=== PATIENT | female | born 1995 | race Caucasian/White ===

== ENCOUNTER → 2017-01-01 | Outpatient (CLI) | payer MEDICAID ==
[~2017-01-01] MED LIST: CITA10TA12 PO; CITA20TA12 PO; CITA20TA7 PO; DOXY1TAB3 PO; FERR-74 PO; HYDR-3062 PO; HYDR-3729 PO; HYDR-3812 PO; HYDR-757 PO; HYOS0.1217 PO; HYOS0.1283 SL; IBP600T1 PO; IBUP-1773 PO; LACT-34 PO; NITR-65 PO; ONDA4TAB8 PO; ONDN4T PO; OXYC-197 PO; PANT40TA2 PO; PANT40TA3 PO; PNV91TAB3 PO; PREN-37 PO; PREN1TAB71 PO; SULF-222 PO
--- NOTE | 2017-01-01 14:00 | Diagnostic Imaging Report ---
EXAMINATION: Two views of the right shoulder. INDICATION: Right shoulder pain. FINDINGS: No fracture or radiopaque foreign body. The acromioclavicular joint appears normal. Full alignment assessment of the glenohumeral joint would need an axillary or a transscapular view. IMPRESSION: Unremarkable exam. Dictated by: Dictated on workstation # [id number]
--- NOTE | 2017-01-01 14:11 | Diagnostic Imaging Report ---
INDICATION: Scoliosis. FINDINGS: There is thoracolumbar scoliosis S-shaped convex to the right in the thoracic mid level and convex to the left in the upper lumbar spine level. The slightly more prominent upper curvature has an associated Villalta angle of angle of 34 degrees. The vertebral body heights and configuration appear within normal limits with no vertebral anomaly demonstrated. No paravertebral soft tissue mass is evident. IMPRESSION: S-shaped thoracolumbar scoliosis with Villalta angle up to 34 degrees. Dictated by: Dictated on workstation # [id number]
== END ==
LOC: RAD 10:52
PROVIDERS: ATTEND Nurse Practitioner Family
DX: M41.115 Juvenile idiopathic scoliosis, thoracolumbar region (principal); M25.511 Pain in right shoulder
CPT/HCPCS: 72081; 73030

== ENCOUNTER 2017-06-21 16:19 | Emergency (ER) | payer MEDICAID ==
[~2017-06-21] VITALS: Ht 167.6 cm; Wt 90.7 kg
[~2017-06-21 16:19] MED LIST changes: +HYOS-6 PO; -HYOS0.1217 PO
[2017-06-21] MEDS ORDERED: HYDR-700 (16:48)
[2017-06-21] MEDS ORDERED: BACL10TA (16:48)
[2017-06-21 17:10] LABS: BILIRUBIN,URINE NEGATIVE (NEGATIVE); KETONES,URINE NEGATIVE (NEGATIVE); LEUKOCYTE ESTERASE ,URINE 1+ (NEGATIVE); NITRITE,URINE NEGATIVE (NEGATIVE); PH,URINE 6 (5-9); PROTEIN,URINE NEGATIVE (NEGATIVE); UROBILINOGEN,URINE NORMAL (NORMAL)
--- NOTE | 2017-06-21 18:17 | ED GU-Female ---
General Chief Complaint: -Female Stated Complaint: L HIP PAIN Nursing Triage Note: ARRIVED VIA AMB TO ROOM 09 WITH COMPLAINTS OF PASSING BLOCK CLUMPS OF TISSUE 4 DAYS AGO AND LEFT LOWER QUAD PAIN SINCE. Nursing Sepsis Screen: No Definite Risk Source: patient Exam Limitations: no limitations (ANAT ROBIN MD) History of Present Illness Time seen by provider: 16:30 Initial Comments This 21-year-old young lady presents to the emergency room with complaints of left lower quadrant pain that started about 3 days ago. 4 days ago she had an episode of vaginal discharge consisting of black appearing clumps. She is on the Depo-Provera injection and is up to date. Her next shot is due June 26. Her last menstrual period was in August 2016. She is sexually active. She has had some mild whitish discharge for the past few days. She denies any pain with intercourse. She does have some chronic issues with diarrhea, bloating, and upper abdominal discomfort. She sees Dr. Olivares for this and is improving. She has been taking "a purple pill" for her upper abdominal pain. She does not know what this medication is but it is presumed this is an antacid medication. She reports it is helping with the upper abdominal symptoms. Patient has not been taking any pain medications. (ANAT ROBIN MD) Allergies and Home Medications Allergies Coded Allergies: Penicillins (Verified Allergy, Intermediate, HIVES, 04/25/14) meropenem (Verified Allergy, Intermediate, HIVES, 08/04/16) FLUSHING Home Medications Baclofen 10 Mg Tablet, (Reported) Citalopram Hydrobromide 20 Mg Tablet, 20 MG PO DAILY, (Reported) Hydrocodone/Acetaminophen 1 Each Tablet, 1-2 TAB PO Q4H PRN for PAIN, #60 Ref 0 Prescribed by: JARETH CASAS on 09/05/16 0949 Hydroxyzine HCl 25 Mg Tablet, (Reported) Lactose-Reduced Food 237 Ml Liquid, 237 ML PO TID, (Reported) Constitutional: no symptoms reported EENTM: no symptoms reported Respiratory: no symptoms reported Cardiovascular: no symptoms reported Gastrointestinal: see HPI Genitourinary: see HPI : No LMP: Aug 16, 2016 Musculoskeletal: no symptoms reported Skin: no symptoms reported Psychiatric/Neurological: No Symptoms Reported Endocrine: No Symptoms Reported Hematologic/Lymphatic: No Symptoms Reported (ANAT ROBIN MD) Past Hdblkbs-Dunlrz-Dcpwhm Hx Patient Social History Alcohol Use: Rarely Uses Recreational Drug Use: No Smoking Status: Current Everyday Smoker Type Used: Cigarettes Recent Foreign Travel: No Contact w/Someone Who Travel: No Recent Infectious Disease Expo: No Recent Hopitalizations: Yes (CHILDBIRTH ON JUN 26, 2017, PANCREATITIS 08/01/16) (ANAT ROBIN MD) Immunizations Up To Date Tetanus Booster (TDap): Less than 5yrs PED Vaccines UTD: Yes Date of Influenza Vaccine: Jun 04, 2016 (ANAT ROBIN MD) Seasonal Allergies Seasonal Allergies: No (ANAT ROBIN MD) Surgeries History of Surgeries: Yes (BMT's, ERCP) Surgeries: Adenoidectomy, Ear Surgery, Gallbladder, Tonsillectomy (ANAT ROBIN MD) Respiratory History of Respiratory Disorde: No Currently Using CPAP: No Currently Using BIPAP: No (ANAT ROBIN MD) Cardiovascular History of Cardiac Disorders: No (ANAT ROBIN MD) Neurological History of Neurological Disord: No (ANAT ROBIN MD) 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 System : No Hx 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 Disorders: No Sexually Transmitted Disease: No 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 (ANAT ROBIN MD) Gastrointestinal History of Gastrointestinal Di: Yes Gastrointestinal Disorders: Pancreatitis, Gall Bladder Disease (ANAT ROBIN MD) Musculoskeletal History of Musculoskeletal Dis: Yes Musculoskeletal Disorders: Scoliosis (ANAT ROBIN MD) Endocrine History of Endocrine Disorders: No (ANAT ROBIN MD) HEENT Loss of Vision: Bilateral Hearing Impairment: Denies (ANAT ROBIN MD) Cancer History of Cancer: No (ANAT ROBIN MD) Psychosocial History of Psychiatric Problem: Yes Behavioral Health Disorders: Anxiety, Depression (ANAT ROBIN MD) Integumentary History of Skin or Integumenta: No (ANAT ROBIN MD) Blood Transfusions History of Blood Disorders: Yes (ANEMIA) Adverse Reaction to a Blood Tr: No (ANAT ROBIN MD) Family Medical History Significant Family History: Diabetes, Hypertension Family Medial History: FH: gallbladder disease 19 MOTHER High cholesterol 19 FATHER Hypertension 19 FATHER Hypoglycemia 19 FATHER G8 BROTHER (ANAT ROBIN MD) Family Medial History: FH: gallbladder disease 19 MOTHER High cholesterol 19 FATHER Hypertension 19 FATHER Hypoglycemia 19 FATHER G8 BROTHER (SHANICE MCCARTHY MD) Physical Exam Vital Signs Vital Sign - Last 12Hours 06/21/17 16:30 Temp 98.0 Pulse 94 Resp 18 B/P (MAP) 130/86 Pulse Ox 99 (SHANICE MCCARTHY MD) Vital Signs Capillary Refill : Less Than 3 Seconds (ANAT ROBIN MD) General Appearance: WD/WN, no apparent distress HEENT: PERRL/EOMI, normal ENT inspection Neck: normal inspection Cardiovascular: regular rate, rhythm, no edema, no murmur Respiratory: lungs clear, normal breath sounds, no respiratory distress, no accessory muscle use Gastrointestinal: normal bowel sounds, soft, tenderness (left lower quadrant) Pelvic: normal external exam, normal adnexa, no cerv. 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, no motor/sensory deficits, alert, normal mood/affect, oriented x 3 Skin: normal color, warm/dry (ANAT ROBIN MD) Progress/Results/Core Measures Results/Orders Lab Results Laboratory Tests Test 06/21/17 16:51 06/21/17 17:53 Range/Units Urine Color YELLOW Urine Clarity CLEAR Urine pH 6 5-9 Urine Specific [place] 1.010 L 1.016-1.022 Urine Protein NEGATIVE NEGATIVE Urine Glucose (UA) NEGATIVE NEGATIVE Urine Ketones NEGATIVE NEGATIVE Urine Nitrite NEGATIVE NEGATIVE Urine Bilirubin NEGATIVE NEGATIVE Urine Urobilinogen NORMAL NORMAL MG/DL Urine Leukocyte Esterase 1+ H NEGATIVE Urine RBC (Auto) NEGATIVE NEGATIVE Urine RBC NONE /HPF Urine WBC NONE /HPF Urine Crystals NONE /LPF Urine Bacteria TRACE /HPF Urine Casts NONE /LPF Urine Mucus NEGATIVE /LPF Urine Culture Indicated NO Urine Test NEGATIVE NEGATIVE (SHANICE MCCARTHY MD) Medications Given in ED Current Medications Medications Dose Ordered Sig/Corey Route Start Time Stop Time Status Last Admin Dose Admin Ketorolac Tromethamine 60 mg ONCE ONCE IM 06/21/17 18:30 06/21/17 18:31 DC 06/21/17 18:28 60 MG (SHANICE MCCARTHY MD) Vital Signs/I&O Vital Sign - Last 12Hours 06/21/17 16:30 Temp 98.0 Pulse 94 Resp 18 B/P (MAP) 130/86 Pulse Ox 99 (SHANICE MCCARTHY MD) Blood Pressure Mean: 101 Point of Care Testing Urine -Bedside: Negative (ANAT ROBIN MD) Progress Note : Progress Note UA and pelvic exam were relatively unremarkable with the exception of left lower quadrant tenderness on the bimanual exam. Patient is receiving Toradol for treatment of pain. Pelvic ultrasound is pending to evaluate the left adnexa. Care of this patient was transferred to Dr. Mccarthy at this time. Verbal report was given. Dr. Miranda's progress note was intended to read "...for her depo-provera injection," not "depression". (ANAT ROBIN MD) Progress Note : Progress Note 1904: Ultrasound complete. No significant findings on ultrasound. Reexamination shows the patient to have mild left lower quadrant tenderness. States that the Toradol didn't do a lot for her pain. She does relay that she is due for her depression on the . This may be breakthrough. Pain. We did discuss multiple options including further evaluation but we both agree that we will hold off at this point and see if she gets better over the next day or 2 with instructions to return if she worsens at all and then we would do further evaluation including labs and imaging is needed. Discharged home with return precautions. Patient verbalize understanding instructions and agreement with plan. (SHANICE MCCARTHY MD) Diagnostic Imaging Diagonstic Imaging: Ultrasound Plain Films/CT/US/NM/MRI: pelvis Comments Left ovary shows no significant findings. Otherwise unremarkable. Right ovary not visualized. Preliminary report (SHANICE MCCARTHY MD) Departure Impression Impression: Primary Impression: Left lower quadrant pain Additional Impression: Vaginal discharge Disposition: 01 HOME, SELF-CARE Condition: Stable Departure-Patient Inst. Decision time for Depature: 19:15 (SHANICE MCCARTHY MD) Referrals: FLORA WEATHERS DO (PCP) Primary Care Physician MILDRED COWAN (Family) Primary Care Physician Patient Instructions: Acute Pelvic Pain (DC), IRREGULAR VAGINAL BLEEDING Add. Discharge Instructions: All discharge instructions reviewed with patient and/or family. Voiced understanding. Drink plenty of fluids. Eat a light diet over the next few days. You may take ibuprofen 800 mg every 8 hours as needed for pain. You may take Tylenol 1000 mg every 8 hours as needed for pain. You may use warm packs over the area of concern as needed to help with pain. Return for worse pain, fever, vomiting, weakness, breathing problems or other concerns as needed. ANAT ROBIN MD Jun 21, 2017 18:17 SHANICE MCCARTHY MD Jun 21, 2017 19:15
[2017-06-21] MEDS ORDERED: KETOROLAC 60 MG/2 ML VIAL IM ONE (18:30)
[2017-06-21 19:20] VITALS: BP 122/74
--- NOTE | 2017-06-21 19:36 | Diagnostic Imaging Report ---
INDICATION: Left lower quadrant pain for four days, patient on Depo shots with no cycles. FINDINGS: Transvaginal imaging of the pelvis demonstrates normal appearance of the uterus measuring 6.1 x 5.3 x 3.2 cm. The endometrium is normal in thickness measuring 3 mm. There is no free fluid. The right ovary is obscured by bowel gas. The left ovary has several small follicles and measures 2.5 x 2.0 x 2.7 cm. IMPRESSION: The right ovary is obscured by bowel gas. The left ovary and uterus appear normal. Dictated by: Dictated on workstation # [id number]
== END 2017-06-21 19:19 | disposition home or self-care (01) ==
LOC: EDUNIT# 16:19 → ER 16:20
DX: N89.8 Other specified noninflammatory disorders of vagina (principal); R10.32 Left lower quadrant pain; D64.9 Anemia, unspecified; F41.9 Anxiety disorder, unspecified; F32.9 Major depressive disorder, single episode, unspecified; H54.3 Unqualified visual loss, both eyes; F17.210 Nicotine dependence, cigarettes, uncomplicated; Z97.5 Presence of (intrauterine) contraceptive device; Z90.89 Acquired absence of other organs; Z87.19 Personal history of other diseases of the digestive system
CPT/HCPCS: 36415; 76830; 76856; 81000; 84703; 87070; 87077; 87210; 87220; 87491; 87591; 96372; 99284

== ENCOUNTER 2017-08-14 15:17 | Emergency (ER) | payer OTHER, MEDICAID ==
[~2017-08-14] VITALS: Ht 170.2 cm; Wt 95.3 kg
[~2017-08-14 15:17] MED LIST changes: +BACL10TA; +HYDR-700
--- NOTE | 2017-08-14 16:21 | ED Syncope ---
General Chief Complaint: Dizziness/Syncope Stated Complaint: CHILLS;PASSING OUT Nursing Triage Note: AMBULATED TO ROOM 03 WITH COMPLAINTS OF PASSING OUT WHILE AT WORK. UNKNOWN IF SHE HIT HER HEAD. STATES SHE PASSED OUT ABOUT A YEAR AGO. Source of Information: Patient, Other (sister) Exam Limitations: No Limitations History of Present Illness Time Seen by Provider: 16:06 Initial Comments Patient has ER by private conveyance with a chief complaint that she was at work today and passed out just prior to arrival. She says she woke up laying on the desk with her head on a pillow. She does not think she struck her head does have a headache however. She was unwitnessed fall. She says she was sitting at her day's doing paperwork last she knew. Her work is rather physical typically. She had one syncopal episode earlier in the year when she was standing at her job at [employer]. She is not on any cough, shortness of breath, nausea, vomiting, diarrhea, however she feels some abdominal discomfort. She says this discomfort been going on for a while and she has a planned CT scan of her abdomen pelvis looking for a possible ovarian cyst set up by her primary care physician in [place], [place]. She has had her gallbladder out in the past. She also had pancreatitis after that, Stone lodged in her pancreatic duct that had to be retrieved surgically. She says she has been expressing fevers off and on for the past month with a MAXIMUM TEMPERATURE of 101. The last one was about a week ago. She has not had that worked up and does not been on antibiotics last 4 weeks. She has no sore throat, runny nose, ear pain, nasal congestion, rash. Last menstrual period was one year ago. She is on Depo-Provera for approximately one year. She also has a history of anxiety and she felt a little shaky after waking up so she took a tablet of hydroxyzine which helped. Allergies and Home Medications Allergies Coded Allergies: Penicillins (Verified Allergy, Intermediate, HIVES, 04/25/14) meropenem (Verified Allergy, Intermediate, HIVES, 08/04/16) FLUSHING Home Medications Baclofen 10 Mg Tablet, (Reported) Citalopram Hydrobromide 20 Mg Tablet, 20 MG PO DAILY, (Reported) Hydrocodone/Acetaminophen 1 Each Tablet, 1-2 TAB PO Q4H PRN for PAIN, #60 Ref 0 Prescribed by: JARETH CASAS on 09/05/16 0949 Hydroxyzine HCl 25 Mg Tablet, (Reported) Lactose-Reduced Food 237 Ml Liquid, 237 ML PO TID, (Reported) Constitutional: see HPI, No chills, No diaphoresis, fever EENTM: No ear discharge, No ear pain, No eye pain, No vision loss Respiratory: No cough, No short of breath Cardiovascular: No chest pain, No Hx of Intervention, No palpitations, syncope , No vascular heart diseas Gastrointestinal: No abdominal pain, No constipation, No diarrhea, No nausea, No vomiting Genitourinary: No discharge, No dysuria : No Skin: No pruritus, No rash Past Qhdjagv-Awomrc-Duraqx Hx Patient Social History Alcohol Use: Rarely Uses Recreational Drug Use: No Smoking Status: Never a Smoker Type Used: Cigarettes Recent Foreign Travel: No Contact w/Someone Who Travel: No Recent Infectious Disease Expo: No Recent Hopitalizations: No Immunizations Up To Date Tetanus Booster (TDap): Less than 5yrs PED Vaccines UTD: Yes Date of Influenza Vaccine: Jun 04, 2016 Seasonal Allergies Seasonal Allergies: No Surgeries History of Surgeries: Yes (BMT's, ERCP) Surgeries: Adenoidectomy, Ear Surgery, Gallbladder, Tonsillectomy Respiratory History of Respiratory Disorde: No Currently Using CPAP: No Currently Using BIPAP: No Cardiovascular History of Cardiac Disorders: No Neurological History of Neurological Disord: No 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 System : No (ON DEPO) Hx 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 Disorders: No Sexually Transmitted Disease: No 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 Genitourinary History of Genitourinary Disor: No Gastrointestinal History of Gastrointestinal Di: Yes Gastrointestinal Disorders: Pancreatitis, Gall Bladder Disease Musculoskeletal History of Musculoskeletal Dis: Yes Musculoskeletal Disorders: Scoliosis Endocrine History of Endocrine Disorders: No HEENT History of HEENT Disorders: No Loss of Vision: Bilateral Hearing Impairment: Denies Cancer History of Cancer: No Psychosocial History of Psychiatric Problem: Yes Behavioral Health Disorders: Anxiety, Depression Integumentary History of Skin or Integumenta: No Blood Transfusions History of Blood Disorders: Yes (ANEMIA) Adverse Reaction to a Blood Tr: No Family Medical History Significant Family History: Diabetes, Hypertension Family Medial History: FH: gallbladder disease 19 MOTHER High cholesterol 19 FATHER Hypertension 19 FATHER Hypoglycemia 19 FATHER G8 BROTHER Physical Exam Vital Signs Vital Sign - Last 12Hours 08/14/17 15:56 Temp 98.0 Pulse 104 Resp 18 B/P (MAP) 123/82 Pulse Ox 99 Capillary Refill : Less Than 3 Seconds General Appearance: No Apparent Distress, Obese HEENT: PERRL/EOMI, TMs Normal, Normal ENT Inspection, Pharynx Normal Neck: Full Range of Motion, Normal Inspection, Non Tender, Supple Cardiovascular: Regular Rate, Rhythm, No Edema, No Murmur, Normal Peripheral Pulses Respiratory: Chest Non Tender, Lungs Clear, Normal Breath Sounds, No Accessory Muscle Use, No Respiratory Distress Gastrointestinal: Normal Bowel Sounds, No Organomegaly, No Pulsatile Mass, Non Tender, Soft Extremities: Normal Capillary Refill, Normal Inspection, No Pedal Edema Neurologic/Psychiatric: Alert, Oriented x3, Normal 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, 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 Cranial Nerves: Normal Hearing, Normal Speech, PERRL Coordination/Gait: Normal Finger to Nose, Normal Gait Motor/Sensory: No Motor Deficit, No Sensory Deficit, No Pronator Drift Skin: Normal Color, Warm/Dry Progress/Results/Core Measures Results/Orders Lab Results Laboratory Tests Test 08/14/17 16:11 08/14/17 16:26 Range/Units Urine Color YELLOW Urine Clarity CLEAR Urine pH 6 5-9 Urine Specific [place] 1.020 1.016-1.022 Urine Protein 1+ H NEGATIVE Urine Glucose (UA) NEGATIVE NEGATIVE Urine Ketones NEGATIVE NEGATIVE Urine Nitrite NEGATIVE NEGATIVE Urine Bilirubin NEGATIVE NEGATIVE Urine Urobilinogen NORMAL NORMAL MG/DL Urine Leukocyte Esterase 1+ H NEGATIVE Urine RBC (Auto) NEGATIVE NEGATIVE Urine RBC NONE /HPF Urine WBC 2-5 /HPF Urine Squamous Epithelial Cells 10-25 H /HPF Urine Crystals NONE /LPF Urine Bacteria FEW H /HPF Urine Casts NONE /LPF Urine Mucus LARGE H /LPF Urine Culture Indicated NO Urine Opiates Screen NEGATIVE NEGATIVE Urine Oxycodone Screen NEGATIVE NEGATIVE Urine Methadone Screen NEGATIVE NEGATIVE Urine Propoxyphene Screen NEGATIVE NEGATIVE Urine Barbiturates Screen NEGATIVE NEGATIVE Ur Tricyclic Antidepressants Screen NEGATIVE NEGATIVE Urine Phencyclidine Screen NEGATIVE NEGATIVE Urine Amphetamines Screen NEGATIVE NEGATIVE Urine Methamphetamines Screen NEGATIVE NEGATIVE Urine Benzodiazepines Screen NEGATIVE NEGATIVE Urine Cocaine Screen NEGATIVE NEGATIVE Urine Cannabinoids Screen NEGATIVE NEGATIVE White Blood Count 9.7 4.3-11.0 10^3/uL Red Blood Count 5.20 4.35-5.85 10^6/uL Hemoglobin 14.2 11.5-16.0 G/DL Hematocrit 42 35-52 % Mean Corpuscular Volume 81 80-99 FL Mean Corpuscular Hemoglobin 27 25-34 PG Mean Corpuscular Hemoglobin Concent 34 32-36 G/DL Red Cell Distribution Width 13.6 10.0-14.5 % Platelet Count 345 130-400 10^3/uL Mean Platelet Volume 9.9 7.4-10.4 FL Neutrophils (%) (Auto) 88 H 42-75 % Lymphocytes (%) (Auto) 9 L 12-44 % Monocytes (%) (Auto) 3 0-12 % Eosinophils (%) (Auto) 0 0-10 % Basophils (%) (Auto) 0 0-10 % Neutrophils # (Auto) 8.6 H 1.8-7.8 X 10^3 Lymphocytes # (Auto) 0.9 L 1.0-4.0 X 10^3 Monocytes # (Auto) 0.2 0.0-1.0 X 10^3 Eosinophils # (Auto) 0.0 0.0-0.3 10^3/uL Basophils # (Auto) 0.0 0.0-0.1 10^3/uL Neutrophils % (Manual) 89 % Lymphocytes % (Manual) 10 % Monocytes % (Manual) 1 % Eosinophils % (Manual) 0 % Basophils % (Manual) 0 % Band Neutrophils 0 % Blood Morphology Comment NORMAL Sodium Level 138 135-145 MMOL/L Potassium Level 3.9 3.6-5.0 MMOL/L Chloride Level 107 98-107 MMOL/L Carbon Dioxide Level 23 21-32 MMOL/L Anion Gap 8 5-14 MMOL/L Blood Urea Nitrogen 10 7-18 MG/DL Creatinine 0.73 0.60-1.30 MG/DL Estimat Glomerular Filtration Rate > 60 BUN/Creatinine Ratio 14 Glucose Level 92 70-105 MG/DL Calcium Level 9.3 8.5-10.1 MG/DL Total Bilirubin 0.7 0.1-1.0 MG/DL Aspartate Amino Transf (AST/SGOT) 22 5-34 U/L Alanine Aminotransferase (ALT/SGPT) 27 0-55 U/L Alkaline Phosphatase 76 40-136 U/L Total Protein 8.4 H 6.4-8.2 GM/DL Albumin 4.4 3.2-4.5 GM/DL Lipase 22 8-78 U/L Thyroid Stimulating Hormone (TSH) 0.84 0.35-4.94 UIU/ML My Orders Orders - LYNN DALEY Cbc With Automated Diff (08/14/17 16:10) Comprehensive Metabolic Panel (08/14/17 16:10) Drug Screen Stat (Urine) (08/14/17 16:10) Lipase (08/14/17 16:10) Ua Culture If Indicated (08/14/17 16:10) Chest Pa/Lat (2 View) (08/14/17 16:10) Ekg Tracing (08/14/17 16:10) Urine Bedside (08/14/17 16:10) Thyroid Stimulating Hormone (08/14/17 16:22) Ondansetron Injection (Zofran Injectio (08/14/17 17:00) Manual Differential (08/14/17 16:26) Medications Given in ED Current Medications Medications Dose Ordered Sig/Corey Route Start Time Stop Time Status Last Admin Dose Admin Ondansetron HCl 4 mg ONCE ONCE IVP 08/14/17 17:00 08/14/17 17:01 DC 08/14/17 17:09 4 MG Vital Signs/I&O Vital Sign - Last 12Hours 08/14/17 15:56 Temp 98.0 Pulse 104 Resp 18 B/P (MAP) 123/82 Pulse Ox 99 Blood Pressure Mean: 96 Progress Note : Time: 16:17 Progress Note We'll do a syncopal workup in EKG, chest x-ray, labs, urine, urine test , TSH, set of orthostatic vitals. Orthostatic vitals are normal 139/66 lying, 118/77 sitting, on 110/63 standing. Heart rate 74, 82, 81. ECG Initial ECG Impression Date: Aug 14, 2017 Initial ECG Impression Time: 16:26 Initial ECG Rate: 100 Initial ECG Rhythm: S.Tach Initial ECG Intervals: Normal Initial ECG Impression: Normal Initial ECG Comparisson: No Previous ECG Available Comment No T-wave abnormalities. Diagnostic Imaging Diagonstic Imaging: Xray Plain Films/CT/US/NM/MRI: chest Comments NAME: PEGGY RAMSAY [facility] REC#: [id number] PHYSICIAN: LYNN DALEY MD CC: RUBENS HOROWITZ; LYNN DALEY Page 1 of 1 RADIOLOGY REPORT VIA [facility], [facility]. [place], [place] CC: RUBENS HOROWITZ; LYNN DALEY Page 1 of 1 RADIOLOGY REPORT NAME: PEGGY RAMSAY [facility] REC#: [id number] PT STATUS: REG ER : 1995 PHYSICIAN: LYNN DALEY MD ADMIT DATE: 08/14/17/ER Signed Date of Exam: 08/14/17 CHEST PA/LAT (2 VIEW) INDICATION: Passed out. COMPARISON: 08/05/2016. FINDINGS: Frontal and lateral views of the chest were performed. FINDINGS: There is scoliosis present. The lungs are clear. The heart is normal. There is no pneumothorax or effusion. IMPRESSION: Negative chest. Dictated by: Dictated on workstation # [id number] Dict: 08/14/17 1658 Trans: 08/14/174 Interpreted by: RUBENS HOROWITZ Electronically signed by: RUBENS HOROWITZ 08/14/174 Reviewed: Reviewed by Me Departure Impression Impression: Primary Impression: Syncope and collapse Disposition: 01 HOME, SELF-CARE Condition: Stable Departure-Patient Inst. Decision time for Depature: 18:04 Referrals: FLORA WEATHERS DO (PCP) Primary Care Physician MILDRED COWAN (Family) Primary Care Physician Patient Instructions: Syncope (Fainting) (DC) Add. Discharge Instructions: Make sure drinking plenty of fluids. Follow-up in the next 2-4 weeks with your primary care physician for further evaluation and management. If you begin to have more frequent syncope then you should follow-up sooner. All discharge instructions reviewed with patient and/or family. Voiced understanding. Work/School Note: Work Release Form Date Seen in the Emergency Department: Aug 14, 2017 Return to Work: Aug 15, 2017 Restrictions: No Restrictions Copy Copies To 1: FLORA WEATHERS TITUS J Aug 14, 2017 16:21
[2017-08-14 16:27] LABS: BILIRUBIN,URINE NEGATIVE (NEGATIVE); KETONES,URINE NEGATIVE (NEGATIVE); LEUKOCYTE ESTERASE ,URINE 1+ (NEGATIVE); NITRITE,URINE NEGATIVE (NEGATIVE); PH,URINE 6 (5-9); PROTEIN,URINE 1+ (NEGATIVE); UROBILINOGEN,URINE NORMAL (NORMAL)
[2017-08-14 16:44] LABS: BASOPHILS % (AUTO) 0 % (0-10); EOSINOPHILS % (AUTO) 0 % (0-10); LYMPHOCYTES # (AUTO) 0.9 X 10^3 (1.0-4.0); LYMPHOCYTES % (AUTO) 9 % (12-44); MEAN CORPUSCULAR HEMOGLOBIN 27 PG (25-34); MEAN CORPUSCULAR HGB CONC 34 G/DL (32-36); MEAN CORPUSCULAR VOLUME 81 FL (80-99); MEAN PLATELET VOLUME 9.9 FL (7.4-10.4); MONOCYTES # (AUTO) 0.2 X 10^3 (0.0-1.0); MONOCYTES % (AUTO) 3 % (0-12); NEUTROPHILS # (AUTO) 8.6 X 10^3 (1.8-7.8); NEUTROPHILS % (AUTO) 88 % (42-75); PLATELET COUNT 345 10^3/uL (130-400); RED CELL DISTRIBUTION WIDTH 13.6 % (10.0-14.5); WHITE BLOOD COUNT 9.7 10^3/uL (4.3-11.0)
[2017-08-14] MEDS ORDERED: ONDANSETRON 4 MG/2 ML (SDV) Z0FRAN IVP ONE (17:00)
[2017-08-14 17:03] LABS: ALANINE AMINOTRANSFERASE 27 U/L (0-55); ALBUMIN 4.4 GM/DL (3.2-4.5); ANION GAP 8 MMOL/L (5-14); ASPARTATE AMINO TRANSFERASE 22 U/L (5-34); BAND NEUTROPHILS 0 %; BASOPHILS % (MANUAL) 0 %; BILIRUBIN,TOTAL 0.7 MG/DL (0.1-1.0); BLOOD UREA NITROGEN 10 MG/DL (7-18); BUN/CREATININE RATIO 14; CALCIUM 9.3 MG/DL (8.5-10.1); CARBON DIOXIDE 23 MMOL/L (21-32); CHLORIDE 107 MMOL/L (98-107); CREATININE SERUM 0.73 MG/DL (0.60-1.30); EOSINOPHILS % (MANUAL) 0 %; GFR ESTIMATED > 60; GLUCOSE 92 MG/DL (70-105); LIPASE 22 U/L (8-78); LYMPHOCYTES % (MANUAL) 10 %; NEUTROPHILS % (MANUAL) 89 %; POTASSIUM 3.9 MMOL/L (3.6-5.0); SODIUM 138 MMOL/L (135-145); TOTAL PROTEIN 8.4 GM/DL (6.4-8.2)
--- NOTE | 2017-08-14 17:04 | Diagnostic Imaging Report ---
INDICATION: Passed out. COMPARISON: 08/05/2016. FINDINGS: Frontal and lateral views of the chest were performed. FINDINGS: There is scoliosis present. The lungs are clear. The heart is normal. There is no pneumothorax or effusion. IMPRESSION: Negative chest. Dictated by: Dictated on workstation # [id number]
[2017-08-14 17:23] LABS: THYROID STIMULATING HORMONE 0.84 UIU/ML (0.35-4.94)
[2017-08-14 18:10] VITALS: BP 113/77
== END 2017-08-14 18:10 | disposition home or self-care (01) ==
LOC: EDUNIT# 15:17 → ER 15:19
DX: R55 Syncope and collapse (principal); F41.9 Anxiety disorder, unspecified; F32.9 Major depressive disorder, single episode, unspecified; Z97.5 Presence of (intrauterine) contraceptive device; Z86.2 Personal history of diseases of the blood and blood-forming organs and certain disorders involving the immune mechanism
CPT/HCPCS: 36415; 71020; 80053; 80306; 81000; 83690; 84443; 84703; 85007; 85025; 85027; 93005

== ENCOUNTER 2017-08-28 16:41 | Emergency (ER) | payer MEDICAID, OTHER ==
[~2017-08-28] VITALS: Ht 170.2 cm; Wt 95.3 kg
[2017-08-28] MEDS ORDERED: KETOROLAC 30 MG/ML VIAL IVP STA (19:31)
[2017-08-28] MEDS ORDERED: LACTATED RINGERS 1,000 ML IV ONE (19:31)
[2017-08-28] MEDS ORDERED: NS 100 ML (IVPB) BAG IV ONE (19:45)
[2017-08-28] MEDS ORDERED: IOHEXOL 350 MG/ML 100 ML (OMNIPAQUE 350) VIAL IV ONE (19:45)
[2017-08-28] MEDS ORDERED: ONDANSETRON 4 MG/2 ML (SDV) Z0FRAN IVP ONE (19:45)
[2017-08-28 19:47] LABS: BILIRUBIN,URINE NEGATIVE (NEGATIVE); KETONES,URINE NEGATIVE (NEGATIVE); LEUKOCYTE ESTERASE ,URINE NEGATIVE (NEGATIVE); NITRITE,URINE NEGATIVE (NEGATIVE); PH,URINE 5 (5-9); PROTEIN,URINE NEGATIVE (NEGATIVE); UROBILINOGEN,URINE NORMAL (NORMAL)
[2017-08-28 19:54] LABS: BASOPHILS % (AUTO) 0 % (0-10); EOSINOPHILS # (AUTO) 0.2 10^3/uL (0.0-0.3); EOSINOPHILS % (AUTO) 2 % (0-10); LYMPHOCYTES # (AUTO) 3.2 X 10^3 (1.0-4.0); LYMPHOCYTES % (AUTO) 31 % (12-44); MEAN CORPUSCULAR HEMOGLOBIN 27 PG (25-34); MEAN CORPUSCULAR HGB CONC 34 G/DL (32-36); MEAN CORPUSCULAR VOLUME 81 FL (80-99); MEAN PLATELET VOLUME 10.2 FL (7.4-10.4); MONOCYTES # (AUTO) 0.5 X 10^3 (0.0-1.0); MONOCYTES % (AUTO) 5 % (0-12); NEUTROPHILS # (AUTO) 6.4 X 10^3 (1.8-7.8); NEUTROPHILS % (AUTO) 62 % (42-75); PLATELET COUNT 359 10^3/uL (130-400); RED BLOOD COUNT 5.05 10^6/uL (4.35-5.85); RED CELL DISTRIBUTION WIDTH 13.7 % (10.0-14.5); WHITE BLOOD COUNT 10.3 10^3/uL (4.3-11.0)
[2017-08-28 20:01] LABS: WBC,URINE 0-2 /HPF
[2017-08-28 20:16] LABS: ANION GAP 10 MMOL/L (5-14); BLOOD UREA NITROGEN 9 MG/DL (7-18); CARBON DIOXIDE 24 MMOL/L (21-32); CHLORIDE 106 MMOL/L (98-107); POTASSIUM 3.2 MMOL/L (3.6-5.0); SODIUM 140 MMOL/L (135-145)
[2017-08-28 20:17] LABS: ALANINE AMINOTRANSFERASE 19 U/L (0-55); ALBUMIN 4.4 GM/DL (3.2-4.5); AMYLASE 60 U/L (25-125); ASPARTATE AMINO TRANSFERASE 16 U/L (5-34); BILIRUBIN,TOTAL 0.3 MG/DL (0.1-1.0); BUN/CREATININE RATIO 11; CALCIUM 9.7 MG/DL (8.5-10.1); GFR ESTIMATED > 60; GLUCOSE 87 MG/DL (70-105); LIPASE 40 U/L (8-78); TOTAL PROTEIN 8.2 GM/DL (6.4-8.2)
--- NOTE | 2017-08-28 20:50 | Diagnostic Imaging Report ---
PROCEDURE: CT abdomen and pelvis with contrast. TECHNIQUE: Multiple contiguous axial images were obtained through the abdomen and pelvis after administration of intravenous contrast. INDICATION: Left lower quadrant pain with swelling and nausea. COMPARISON: 09/03/2016 FINDINGS: The lung bases are clear. The heart is normal in size. There is no pericardial effusion. No acute osseous abnormality is seen. 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 The liver, spleen, and adrenal glands appear normal. There is mild fat stranding about the pancreas. Multiple prominent mesenteric lymph nodes are seen, but these are likely reactive and are not enlarged by CT size criteria. No peripancreatic fluid collections or masses are seen. The kidneys appear normal. There is no hydronephrosis. The bowel loops are nondistended. There is no evidence of obstruction. The appendix is normal. The transverse and descending colon is completely decompressed. A 2 cm dominant right ovarian follicle is seen. There is a small amount of fluid in the pelvis. There is mild fat stranding at the junction of the descending colon and sigmoid (image 71 series 2). No other areas of pericolonic fat stranding is seen. No fluid collections are seen. No diverticuli are seen. The urinary bladder is not distended. IMPRESSION: 1. Small focus of pericolonic fat stranding adjacent to the distal descending colon. No discrete diverticula are seen, however, possible etiologies include mild diverticulitis or possibly epiploic appendagitis. 2. Mild fat stranding about the pancreas with mildly prominent mesenteric lymph nodes. Please correlate with lipase to exclude pancreatitis. Dictated by: Dictated on workstation # [id number]
--- NOTE | 2017-08-28 21:01 | ED Abdominal Pain ---
General Chief Complaint: Abdominal/GI Problems Stated Complaint: HIP PAIN Nursing Triage Note: COMPLAINTS OF LEFT LOWER ABD PAIN STARTING THIS AM. STATES SHE THINKS IT IS HER OVERY. HAS TAKEN IBUPROFEN 800MG PO WHICH HAS NOT HELPED. Sepsis Screen: No Definite Risk Source of Information: Patient History of Present Illness Time Seen By Provider: 19:23 Initial Comments C/O LEFT LOWER ABDOMINAL PAIN SINCE AT LEAST PAIN IS CONSTANT, AND NEVER GOES AWAY, AND IS GRADUALLY GETTING WORSE PAIN IS WORSE WITH SITTING TOO LONG OR WALKING TOO FAR--WALKING MORE THAN 5 MINUTES AT A TIME HAS HAD THIS SAME PROBLEM OFF AND ON SINCE AGE 15, AND WAS TOLD IT WAS HER OVARIES + NAUSEA, NO VOMITING HAD NORMAL BM 3 HOURS AGO NO FEVER NO URINARY SYMPTOMS TOOK IBUPROFEN 800 MG 5 HOURS AGO, WITHOUT RELIEF. PT STATES SHE WAS SEEN AT [facility] AT THE END OF JULY, APPROXIMATELY 2 WEEKS AGO, AND WAS SUPPOSED TO HAVE HAD OUTPATIENT CT, BUT HAS NOT HAD IT DONE. LMP 07/2016 ON DEPO-PROVERA--LAST SHOT WAS 08/12/17 PCP: [facility] Allergies and Home Medications Allergies Coded Allergies: Penicillins (Verified Allergy, Intermediate, HIVES, 04/25/14) meropenem (Verified Allergy, Intermediate, HIVES, 08/04/16) FLUSHING Home Medications Baclofen 10 Mg Tablet, (Reported) Ciprofloxacin HCl 500 Mg Tablet, 500 MG PO BID, #20 Prescribed by: ARIA MUNIZ on 08/28/172101 Citalopram Hydrobromide 20 Mg Tablet, 20 MG PO DAILY, (Reported) Hydrocodone/Acetaminophen 1 Each Tablet, 1-2 TAB PO Q4H PRN for PAIN, #60 Ref 0 Prescribed by: JARETH CASAS on 09/05/16 0949 Hydroxyzine HCl 25 Mg Tablet, (Reported) Lactobacillus Acidophilus 1 Each Capsule, 2 EACH PO QID, #80 Prescribed by: ARIA MUNIZ on 08/28/172101 Lactose-Reduced Food 237 Ml Liquid, 237 ML PO TID, (Reported) Meloxicam 7.5 Mg Tablet, 7.5 MG PO DAILY, #10 Prescribed by: ARIA MUNIZ on 08/28/172101 Metronidazole 500 Mg Tablet, 500 MG PO QID, #40 Prescribed by: ARIA MUNIZ on 08/28/172101 Review of Systems Constitutional: no symptoms reported, No chills, No diaphoresis, No fever EENTM: No Symptoms Reported Respiratory: No Symptoms Reported Cardiovascular: No Symptoms Reported Gastrointestinal: See HPI, Abdominal Pain, Denies Constipated, Denies Diarrhea , Nausea, Denies Poor Appetite, Denies Poor Fluid Intake, Denies Rectal Bleeding , Denies Vomiting Genitourinary: No Symptoms Reported Musculoskeletal: no symptoms reported Skin: no symptoms reported Psychiatric/Neurological: No Symptoms Reported Endocrine: No Symptoms Reported Hematologic/Lymphatic: No Symptoms Reported Past Fspmsfy-Axpbnx-Oczdue Hx Patient Social History Alcohol Use: Denies Use Recreational Drug Use: No Smoking Status: Current Everyday Smoker (< 1/2 PPD) Type Used: Cigarettes Recent Foreign Travel: No Contact w/Someone Who Travel: No Recent Infectious Disease Expo: No Recent Hopitalizations: No Physical Abuse: No Sexual Abuse: No Immunizations Up To Date Tetanus Booster (TDap): Less than 5yrs PED Vaccines UTD: Yes Date of Influenza Vaccine: Jun 04, 2016 Seasonal Allergies Seasonal Allergies: No Surgeries History of Surgeries: Yes (BMT's, ERCP) Surgeries: Adenoidectomy, Ear Surgery, Gallbladder, Tonsillectomy Respiratory History of Respiratory Disorde: No Currently Using CPAP: No Currently Using BIPAP: No Cardiovascular History of Cardiac Disorders: No Neurological History of Neurological Disord: No 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 System : No (DEPO SHOT) Hx 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 Disorders: No Sexually Transmitted Disease: No HIV/AIDS: No Genitourinary History of Genitourinary Disor: No Gastrointestinal History of Gastrointestinal Di: Yes Gastrointestinal Disorders: Pancreatitis, Gall Bladder Disease Musculoskeletal History of Musculoskeletal Dis: Yes Musculoskeletal Disorders: Scoliosis Endocrine History of Endocrine Disorders: No HEENT History of HEENT Disorders: No Loss of Vision: Bilateral Hearing Impairment: Denies Cancer History of Cancer: No Psychosocial History of Psychiatric Problem: Yes Behavioral Health Disorders: Anxiety, Depression Suicide Risk Score: 0 Integumentary History of Skin or Integumenta: No Blood Transfusions History of Blood Disorders: Yes (ANEMIA) Adverse Reaction to a Blood Tr: No Family Medical History Significant Family History: Diabetes, Hypertension Family Medial History: FH: gallbladder disease 19 MOTHER High cholesterol 19 FATHER Hypertension 19 FATHER Hypoglycemia 19 FATHER G8 BROTHER Physical Exam Vital Signs VS - Last 72 Hours, by Label 08/28/17 08/28/17 17:05 21:17 Temp 98.1 98.1 Pulse 89 89 Resp 18 18 B/P (MAP) 112/63 (79) Pulse Ox 99 99 Capillary Refill : Less Than 3 Seconds General Appearance: WD/WN, no apparent distress, obese, other (WALKS UPRIGHT AND MOVES QUICKLY WITHOUT DIFFICULTY. LAYING COMPLETELY OUTSTRETCHED WITH ARMS OVERHEAD. DOES NOT APPEAR TO BE IN ANY DISCOMFORT WHATSOEVER. 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, no motor/sensory deficits, alert, normal mood/affect, oriented x 3 Skin: normal color, warm/dry, No rash Progress/Results/Core Measures Results/Orders Lab Results Laboratory Tests Test 08/28/17 19:25 08/28/17 19:46 Range/Units Urine Color YELLOW Urine Clarity CLEAR Urine pH 5 5-9 Urine Specific [place] 1.020 1.016-1.022 Urine Protein NEGATIVE NEGATIVE Urine Glucose (UA) NEGATIVE NEGATIVE Urine Ketones NEGATIVE NEGATIVE Urine Nitrite NEGATIVE NEGATIVE Urine Bilirubin NEGATIVE NEGATIVE Urine Urobilinogen NORMAL NORMAL MG/DL Urine Leukocyte Esterase NEGATIVE NEGATIVE Urine RBC (Auto) NEGATIVE NEGATIVE Urine RBC NONE /HPF Urine WBC 0-2 /HPF Urine Squamous Epithelial Cells 10-25 H /HPF Urine Crystals NONE /LPF Urine Bacteria FEW H /HPF Urine Casts NONE /LPF Urine Mucus NEGATIVE /LPF Urine Culture Indicated NO White Blood Count 10.3 4.3-11.0 10^3/uL Red Blood Count 5.05 4.35-5.85 10^6/uL Hemoglobin 13.8 11.5-16.0 G/DL Hematocrit 41 35-52 % Mean Corpuscular Volume 81 80-99 FL Mean Corpuscular Hemoglobin 27 25-34 PG Mean Corpuscular Hemoglobin Concent 34 32-36 G/DL Red Cell Distribution Width 13.7 10.0-14.5 % Platelet Count 359 130-400 10^3/uL Mean Platelet Volume 10.2 7.4-10.4 FL Neutrophils (%) (Auto) 62 42-75 % Lymphocytes (%) (Auto) 31 12-44 % Monocytes (%) (Auto) 5 0-12 % Eosinophils (%) (Auto) 2 0-10 % Basophils (%) (Auto) 0 0-10 % Neutrophils # (Auto) 6.4 1.8-7.8 X 10^3 Lymphocytes # (Auto) 3.2 1.0-4.0 X 10^3 Monocytes # (Auto) 0.5 0.0-1.0 X 10^3 Eosinophils # (Auto) 0.2 0.0-0.3 10^3/uL Basophils # (Auto) 0.0 0.0-0.1 10^3/uL Sodium Level 140 135-145 MMOL/L Potassium Level 3.2 L 3.6-5.0 MMOL/L Chloride Level 106 98-107 MMOL/L Carbon Dioxide Level 24 21-32 MMOL/L Anion Gap 10 5-14 MMOL/L Blood Urea Nitrogen 9 7-18 MG/DL Creatinine 0.80 0.60-1.30 MG/DL Estimat Glomerular Filtration Rate > 60 BUN/Creatinine Ratio 11 Glucose Level 87 70-105 MG/DL Calcium Level 9.7 8.5-10.1 MG/DL Total Bilirubin 0.3 0.1-1.0 MG/DL Aspartate Amino Transf (AST/SGOT) 16 5-34 U/L Alanine Aminotransferase (ALT/SGPT) 19 0-55 U/L Alkaline Phosphatase 65 40-136 U/L Total Protein 8.2 6.4-8.2 GM/DL Albumin 4.4 3.2-4.5 GM/DL Amylase Level 60 25-125 U/L Lipase 40 8-78 U/L My Orders Orders - ARIA MUNIZ DO Urine Bedside (08/28/17 19:22) Ua Culture If Indicated (08/28/17 19:22) Saline Lock/Iv-Start (08/28/17 19:31) Amylase (08/28/17 19:31) Cbc With Automated Diff (08/28/17 19:31) Comprehensive Metabolic Panel (08/28/17 19:31) Lipase (08/28/17 19:31) Ct Abdomen/Pelvis W (08/28/17 19:31) Saline Lock/Iv-Start (08/28/17 19:31) Ketorolac Injection (Toradol Injection) (08/28/17 19:31) Ondansetron Injection (Zofran Injectio (08/28/17 19:45) Saline Lock/Iv-Start (08/28/17 19:31) Lactated Ringers (Lr 1000 Ml Iv Solution (08/28/17 19:31) Iohexol Injection (Omnipaque 350 Mg/Ml 1 (08/28/17 19:45) Ns (Ivpb) (Sodium Chloride 0.9% Ivpb Bag (08/28/17 19:45) Rx-Naproxen (Rx-Naprosyn) (08/28/17 21:02) Metronidazole Tablet (Flagyl Tablet) (08/28/17 21:15) Levofloxacin Tablet (Levaquin Tablet) (08/28/17 21:15) Medications Given in ED Current Medications Medications Dose Ordered Sig/Corey Route Start Time Stop Time Status Last Admin Dose Admin Iohexol 100 ml ONCE ONCE IV 08/28/17 19:45 08/28/17 19:46 DC 08/28/17 20:19 100 ML Lactated Ringer's 1,000 ml @ 0 mls/hr Q0M ONCE IV 08/28/17 19:31 08/28/17 19:34 DC 08/28/17 19:54 0 MLS/HR Levofloxacin 500 mg ONCE ONCE PO 08/28/17 21:15 08/28/17 21:16 DC 08/28/17 21:13 500 MG Metronidazole 500 mg ONCE ONCE PO 08/28/17 21:15 08/28/17 21:16 DC 08/28/17 21:13 500 MG Ondansetron HCl 4 mg ONCE ONCE IVP 08/28/17 19:45 08/28/17 19:46 DC 08/28/17 19:51 4 MG Sodium Chloride 100 ml ONCE ONCE IV 08/28/17 19:45 08/28/17 19:46 DC 08/28/17 20:19 80 ML Vital Signs/I&O Vital Sign - Last 12Hours 08/28/17 08/28/17 17:05 21:17 Temp 98.1 98.1 Pulse 89 89 Resp 18 18 B/P (MAP) 112/63 (79) Pulse Ox 99 99 Intake and Output 08/29/17 00:00 Intake Total 1000 ml Balance 1000 ml Blood Pressure Mean: 79 Point of Care Testing Urine -Bedside: Negative Diagnostic Imaging Comments CT ABDOMEN/PELVIS--SMALL FOCUS OF PERICOLONIC FAT STRANDING ADJACENT TO DISTAL DESCENDING COLON. NO DISCRETE DIVERTICULI, BUT POSSIBLY DIVERTICULITIS OR EPIPLOID APPENDAGITIS. MILDLY PROMINENT MESENTERIC LYMPH NODES, WITH MILD FAT STRANDING AROUND PANCREAS--PER RADIOLOGIST REPORT Reviewed: Reviewed by Me Departure Impression Impression: Primary Impression: LLQ abdominal pain Additional Impression: POSSIBLE MILD COLITIS VS EPIPLOIC APPENDAGITIS Disposition: HOME, SELF-CARE Condition: Stable Departure-Patient Inst. Referrals: FLORA WEATHERS DO (PCP) Primary Care Physician MILDRED COWAN (Family) Primary Care Physician Patient Instructions: Acute Abdomen (Belly Pain), Adult (DC), Microscopic Colitis Add. Discharge Instructions: CLEAR LIQUIDS--WATER, BROTH, JELLO, GATORADE NO FOOD UNTIL YOU ARE RECHECKED AND CLEARED BY DR FOLLOW UP WITH [facility] IN 2-3 DAYS FOR RECHECK All discharge instructions reviewed with patient and/or family. Voiced understanding. Scripts Meloxicam (Mobic) 7.5 Mg Tablet 7.5 MG PO DAILY, #10 TAB Prov: ARIA MUNIZ DO 08/28/17 Metronidazole (Flagyl) 500 Mg Tablet 500 MG PO QID for FOR INFECTION, #40 TAB Prov: ARIA MUNIZ DO 08/28/17 Lactobacillus Acidophilus (Acidophilus) 1 Each Capsule 2 EACH PO QID, #80 CAP Prov: ARIA MUNIZ DO 08/28/17 Ciprofloxacin HCl (Cipro) 500 Mg Tablet 500 MG PO BID, #20 TAB Prov: ARIA MUNIZ DO 08/28/17 ARIA MUNIZ DO Aug 28, 2017 21:01
[2017-08-28] MEDS ORDERED: METR500T PO (21:02)
[2017-08-28] MEDS ORDERED: RX-NAPROXEN (NAPROSYN) 250 MG TAB PPK#4 PO STA (21:02)
[2017-08-28] MEDS ORDERED: LACT1CAP8 PO (21:02)
[2017-08-28] MEDS ORDERED: CIPR-225 PO (21:02)
[2017-08-28] MEDS ORDERED: MELO-170 PO (21:02)
[2017-08-28] MEDS ORDERED: LEVOFLOXACIN 500 MG TAB (LEVAQUIN) PO ONE (21:15)
[2017-08-28] MEDS ORDERED: metroNIDAZOLE 500 MG (FLAGYL) TAB PO ONE (21:15)
[2017-08-28 21:17] VITALS: BP 112/63
== END 2017-08-28 21:16 | disposition home or self-care (01) ==
LOC: EDUNIT# 16:41 → ER 16:43
DX: R10.32 Left lower quadrant pain (principal); F41.9 Anxiety disorder, unspecified; F32.9 Major depressive disorder, single episode, unspecified; F17.210 Nicotine dependence, cigarettes, uncomplicated; Z87.19 Personal history of other diseases of the digestive system; Z90.89 Acquired absence of other organs
CPT/HCPCS: 36415; 74177; 80053; 81000; 82150; 83690; 84703; 85025

== ENCOUNTER 2018-01-12 11:32 | Emergency (ER) | payer OTHER, MEDICAID ==
[~2018-01-12] VITALS: Ht 167.6 cm; Wt 106.6 kg
[~2018-01-12 11:32] MED LIST changes: +ACHD5005 PO; +CIPR-225 PO; -CITA20TA7 PO; +CITA20TA9 PO; -FERR-74 PO; +FERR325T18 PO; -HYDR-3812 PO; +LACT1CAP8 PO; +MELO-170 PO; +METR500T PO
--- NOTE | 2018-01-12 12:43 | ED Psychosocial ---
General Chief Complaint: General Problems/Pain Stated Complaint: CP, L ARM PAIN, SOB, DIARRHEA Nursing Triage Note: PT REPORTS DIARRHEA SINCE 0630 THIS AM. SHE REPORTS THAT SHORTLY AFTER SHE BEGAN HAVING PALPITATIONS AND NAUSEA. SHE STATES SHE THOUGHT SHE WAS HAVING A PANIC ATTACK SO SHE TOOK ANTI EMETIC AND HYDROXIZINE. SHE REPORTS THAT SHE BEGAN HYPERVENTILATING. SHE THEN DECIDED TO COME TO THE ER. EN ROUTE SHE BEGAN HAVING CP AND ARM NUMBNESS. PT HAS HX OF ANXIETY. Source: patient Exam Limitations: no limitations History of Present Illness Date Seen by Provider: Jan 12, 2018 Time Seen by Provider: 12:43 Allergies and Home Medications Allergies Coded Allergies: Penicillins (Verified Allergy, Intermediate, HIVES, 04/25/14) meropenem (Verified Allergy, Intermediate, HIVES, 08/04/16) FLUSHING Home Medications Ciprofloxacin HCl 500 Mg Tablet, 500 MG PO BID Prescribed by: ARIA MUNIZ on 08/28/172101 Citalopram Hydrobromide 20 Mg Tablet, 20 MG PO DAILY, (Reported) Hydrocodone Bit/Acetaminophen 1 Each Tablet, 1-2 TAB PO Q4H PRN for PAIN Prescribed by: JARETH CASAS on 09/05/16 0949 Lactobacillus Acidophilus 1 Each Capsule, 2 EACH PO QID Prescribed by: ARIA MUNIZ on 08/28/172101 Lactose-Reduced Food 237 Ml Liquid, 237 ML PO TID, (Reported) Meloxicam 7.5 Mg Tablet, 7.5 MG PO DAILY Prescribed by: ARIA MUNIZ on 08/28/172101 Metronidazole 500 Mg Tablet, 500 MG PO QID Prescribed by: ARIA MUNIZ on 08/28/172101 Past Bqeymar-Qnogdz-Fxijep Hx Patient Social History Alcohol Use: Rarely Uses Recreational Drug Use: No Smoking Status: Former Smoker Type Used: Cigarettes Former Smoker, Quit: Nov 14, 2017 2nd Hand Smoke Exposure: Yes Recent Foreign Travel: No Contact w/Someone Who Travel: No Recent Infectious Disease Expo: No Recent Hopitalizations: No Immunizations Up To Date Tetanus Booster (TDap): Less than 5yrs PED Vaccines UTD: Yes Date of Influenza Vaccine: Jun 04, 2016 Seasonal Allergies Seasonal Allergies: No Past Medical History Surgeries: Yes (BMT's, ERCP) Adenoidectomy, Ear Surgery, Gallbladder, Tonsillectomy Respiratory: No Currently Using CPAP: No Currently Using BIPAP: No Cardiac: No Neurological: No 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 Disorders: 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 Sexually Transmitted Disease: No HIV/AIDS: No Genitourinary: No Gastrointestinal: Yes Pancreatitis, Gall Bladder Disease Musculoskeletal: Yes Scoliosis Endocrine: No HEENT: No Loss of Vision: Bilateral Hearing Impairment: Denies Cancer: No Psychosocial: Yes Anxiety, Depression Integumentary: No Blood Disorders: Yes (ANEMIA) Adverse Reaction/Blood Tranf: No Family Medical History FH: gallbladder disease 19 MOTHER High cholesterol 19 FATHER Hypertension 19 FATHER Hypoglycemia 19 FATHER G8 BROTHER Diabetes, Hypertension Physical Exam Vital Signs Vital Signs - First Documented 01/12/18 11:50 Temp 98.4 Pulse 121 Resp 25 B/P (MAP) 127/89 (102) Pulse Ox 97 O2 Delivery Room Air Capillary Refill : Less Than 3 Seconds Progress/Results/Core Measures Lab Results Laboratory Tests Test 01/12/18 13:20 01/12/18 14:00 Range/Units White Blood Count 13.7 H 4.3-11.0 10^3/uL Red Blood Count 5.49 4.35-5.85 10^6/uL Hemoglobin 15.0 11.5-16.0 G/DL Hematocrit 44 35-52 % Mean Corpuscular Volume 81 80-99 FL Mean Corpuscular Hemoglobin 27 25-34 PG Mean Corpuscular Hemoglobin Concent 34 32-36 G/DL Red Cell Distribution Width 13.6 10.0-14.5 % Platelet Count 366 130-400 10^3/uL Mean Platelet Volume 9.8 7.4-10.4 FL Neutrophils (%) (Auto) 87 H 42-75 % Lymphocytes (%) (Auto) 8 L 12-44 % Monocytes (%) (Auto) 5 0-12 % Eosinophils (%) (Auto) 0 0-10 % Basophils (%) (Auto) 0 0-10 % Neutrophils # (Auto) 11.9 H 1.8-7.8 X 10^3 Lymphocytes # (Auto) 1.1 1.0-4.0 X 10^3 Monocytes # (Auto) 0.7 0.0-1.0 X 10^3 Eosinophils # (Auto) 0.1 0.0-0.3 10^3/uL Basophils # (Auto) 0.0 0.0-0.1 10^3/uL Sodium Level 140 135-145 MMOL/L Potassium Level 4.1 3.6-5.0 MMOL/L Chloride Level 108 H 98-107 MMOL/L Carbon Dioxide Level 20 L 21-32 MMOL/L Anion Gap 12 5-14 MMOL/L Blood Urea Nitrogen 8 7-18 MG/DL Creatinine 0.76 0.60-1.30 MG/DL Estimat Glomerular Filtration Rate > 60 BUN/Creatinine Ratio 11 Glucose Level 92 70-105 MG/DL Calcium Level 10.3 H 8.5-10.1 MG/DL Total Bilirubin 0.7 0.1-1.0 MG/DL Aspartate Amino Transf (AST/SGOT) 18 5-34 U/L Alanine Aminotransferase (ALT/SGPT) 22 0-55 U/L Alkaline Phosphatase 82 40-136 U/L Troponin I < 0.30 <0.30 NG/ML C-Reactive Protein High Sensitivity 0.65 H 0.00-0.50 MG/DL Total Protein 8.8 H 6.4-8.2 GM/DL Albumin 4.8 H 3.2-4.5 GM/DL Lipase 19 8-78 U/L TSH Patterson Testing 1.04 0.35-4.94 UIU/ML Urine Color YELLOW Urine Clarity CLEAR Urine pH 5 5-9 Urine Specific [place] 1.020 1.016-1.022 Urine Protein 1+ H NEGATIVE Urine Glucose (UA) NEGATIVE NEGATIVE Urine Ketones 2+ H NEGATIVE Urine Nitrite NEGATIVE NEGATIVE Urine Bilirubin NEGATIVE NEGATIVE Urine Urobilinogen NORMAL NORMAL MG/DL Urine Leukocyte Esterase 1+ H NEGATIVE Urine RBC (Auto) 1+ H NEGATIVE Urine RBC NONE /HPF Urine WBC 2-5 /HPF Urine Squamous Epithelial Cells 10-25 H /HPF Urine Renal Epithelial Cells NONE /HPF Urine Crystals PRESENT H /LPF Urine Amorphous Sediment MOD MARISELA URATES H /LPF Urine Bacteria MODERATE H /HPF Urine Casts NONE /LPF Urine Mucus NEGATIVE /LPF Urine Culture Indicated NO My Orders Orders - NATALIA STEINER Cbc With Automated Diff (01/12/18 12:57) Comprehensive Metabolic Panel (01/12/18 12:57) Hs C Reactive Protein (01/12/18 12:57) Lipase (01/12/18 12:57) Thyroid Analyzer (01/12/18 12:57) Troponin I (01/12/18 12:57) Ua Culture If Indicated (01/12/18 12:57) Saline Lock/Iv-Start (01/12/18 12:57) Urine Bedside (01/12/18 12:57) Ekg Tracing (01/12/18 12:57) Chest 1 View, Ap/Pa Only (01/12/18 12:57) Ns Iv 1000 Ml (Sodium Chloride 0.9%) (01/12/18 12:57) Ondansetron Injection (Zofran Injectio (01/12/18 13:00) Ketorolac Injection (Toradol Injection) (01/12/18 12:57) Ct Abdomen/Pelvis W (01/12/18 14:24) Iohexol Injection (Omnipaque 350 Mg/Ml 1 (01/12/18 14:30) Di Iv Start (Assessment) .on IV start (01/12/18 14:27) Sodium Chloride Flush (Catheter Flush Sy (01/12/18 14:30) Ns (Ivpb) (Sodium Chloride 0.9%) (01/12/18 14:30) Medications Given in ED Current Medications Medications Dose Ordered Sig/Corey Route Start Time Stop Time Status Last Admin Dose Admin Iohexol 100 ml ONCE ONCE IV 01/12/18 14:30 01/12/18 14:31 DC 01/12/18 14:40 100 ML Ondansetron HCl 4 mg ONCE ONCE IVP 01/12/18 13:00 01/12/18 13:01 DC 01/12/18 13:25 4 MG Sodium Chloride 10 ml NEEDED PRN IV 01/12/18 14:30 01/12/18 14:41 10 ML Sodium Chloride 250 ml ONCE ONCE IV 01/12/18 14:30 01/12/18 14:31 DC 01/12/18 14:40 80 ML Sodium Chloride 1,000 ml @ 0 mls/hr Q0M ONCE IV 01/12/18 12:57 01/12/18 13:01 DC 01/12/18 13:25 0 MLS/HR Vital Signs/I&O 01/12/18 11:50 Temp 98.4 Pulse 121 Resp 25 B/P (MAP) 127/89 (102) Pulse Ox 97 O2 Delivery Room Air Blood Pressure Mean: 102 Departure Impression Primary Impression: Mesenteric adenitis Disposition: 01 HOME, SELF-CARE Condition: Improved Departure-Patient Inst. Decision time for Depature: 16:13 Referrals: [facility] (PCP/Family) Primary Care Physician Patient Instructions: Mesenteric Lymphadenitis (DC) Add. Discharge Instructions: All discharge instructions reviewed with patient and/or family. Voiced understanding. Medications as instructed. Tylenol Extra Strength over-the- counter as directed for pain. Ibuprofen 800 mg by mouth every 8 hours as needed for pain. Imodium eney-yzt-kqyyzga as needed for diarrhea. Drink plenty of fluids. Clear liquid diet until symptoms improve, then increase diet slowly to a low-fat, bland diet. Follow-up with your primary care provider if no improvement in symptoms. Return to the emergency department for worsened symptoms or any other concerns. Scripts Ondansetron (Ondansetron Odt) 8 Mg Tab.rapdis 8 MG PO Q6H PRN for NAUSEA/VOMITING-1ST LINE, #10 TAB 0 Refills Prov: NATALIA STEINER 01/12/18 Work/School Note: Work Release Form Date Seen in the Emergency Department: Jan 12, 2018 Return to Work: January 14, 2018 Restrictions: Return-No Fever (24hrs), Return-No Vomiting(24hrs) NATALIA STEINER Jan 12, 2018 12:43
[2018-01-12] MEDS ORDERED: KETOROLAC 30 MG/ML VIAL IVP STA (12:57)
[2018-01-12] MEDS ORDERED: NS IV 1000 ML 1,000 ML IV ONE (12:57)
[2018-01-12] MEDS ORDERED: ONDANSETRON 4 MG/2 ML (SDV) Z0FRAN IVP ONE (13:00)
[2018-01-12 13:34] LABS: BASOPHILS % (AUTO) 0 % (0-10); EOSINOPHILS # (AUTO) 0.1 10^3/uL (0.0-0.3); EOSINOPHILS % (AUTO) 0 % (0-10); HEMATOCRIT 44 % (35-52); LYMPHOCYTES # (AUTO) 1.1 X 10^3 (1.0-4.0); LYMPHOCYTES % (AUTO) 8 % (12-44); MEAN CORPUSCULAR HEMOGLOBIN 27 PG (25-34); MEAN CORPUSCULAR HGB CONC 34 G/DL (32-36); MEAN CORPUSCULAR VOLUME 81 FL (80-99); MEAN PLATELET VOLUME 9.8 FL (7.4-10.4); MONOCYTES # (AUTO) 0.7 X 10^3 (0.0-1.0); MONOCYTES % (AUTO) 5 % (0-12); NEUTROPHILS # (AUTO) 11.9 X 10^3 (1.8-7.8); NEUTROPHILS % (AUTO) 87 % (42-75); PLATELET COUNT 366 10^3/uL (130-400); RED BLOOD COUNT 5.49 10^6/uL (4.35-5.85); RED CELL DISTRIBUTION WIDTH 13.6 % (10.0-14.5); WHITE BLOOD COUNT 13.7 10^3/uL (4.3-11.0)
[2018-01-12 13:53] LABS: ALANINE AMINOTRANSFERASE 22 U/L (0-55); ALBUMIN 4.8 GM/DL (3.2-4.5); ALKALINE PHOSPHATASE 82 U/L (40-136); BILIRUBIN,TOTAL 0.7 MG/DL (0.1-1.0); BUN/CREATININE RATIO 11; CALCIUM 10.3 MG/DL (8.5-10.1); CARBON DIOXIDE 20 MMOL/L (21-32); CHLORIDE 108 MMOL/L (98-107); CREATININE SERUM 0.76 MG/DL (0.60-1.30); GFR ESTIMATED > 60; GLUCOSE 92 MG/DL (70-105); LIPASE 19 U/L (8-78); POTASSIUM 4.1 MMOL/L (3.6-5.0); SODIUM 140 MMOL/L (135-145); TOTAL PROTEIN 8.8 GM/DL (6.4-8.2)
[2018-01-12 14:10] LABS: BILIRUBIN,URINE NEGATIVE (NEGATIVE); CLARITY,URINE CLEAR; COLOR,URINE YELLOW; GLUCOSE, URINE (UA) NEGATIVE (NEGATIVE); KETONES,URINE 2+ (NEGATIVE); LEUKOCYTE ESTERASE ,URINE 1+ (NEGATIVE); NITRITE,URINE NEGATIVE (NEGATIVE); PH,URINE 5 (5-9); PROTEIN,URINE 1+ (NEGATIVE); UROBILINOGEN,URINE NORMAL (NORMAL)
[2018-01-12 14:13] LABS: TSH (THYROID ANALYZER) 1.04 UIU/ML (0.35-4.94)
[2018-01-12] MEDS ORDERED: IOHEXOL 350 MG/ML 100 ML (OMNIPAQUE 350) VIAL IV ONE (14:30)
[2018-01-12] MEDS ORDERED: CATHETER FLUSH 10 ML SYR IV PRN (14:30)
[2018-01-12] MEDS ORDERED: NS 250 ML (IVPB) BAG IV ONE (14:30)
[2018-01-12 14:39] LABS: AMORPHOUS SEDIMENT,UR MOD AMOR URATES /LPF
[2018-01-12 14:40] LABS: BACTERIA,URINE MODERATE /HPF
--- NOTE | 2018-01-12 14:50 | Diagnostic Imaging Report ---
EXAMINATION: Chest radiograph, portable AP view. DATE: January 12, 2018 at 1424 hours. INDICATION: 22-year-old female, chest pain. COMPARISON: August 14, 2017. FINDINGS: There is a thoracic dextroscoliosis and thoracolumbar levocurvature. Stable overall appearance of the cardiomediastinal silhouette. There is no identified pneumothorax. There is no large pleural effusion. There is no identified focal airspace consolidation. IMPRESSION: 1. No identified acute cardiopulmonary abnormality. 2. Redemonstrated scoliosis. Dictated by: Dictated on workstation # [id number]
--- NOTE | 2018-01-12 15:00 | Diagnostic Imaging Report ---
PROCEDURE: CT abdomen and pelvis with contrast. TECHNIQUE: Multiple contiguous axial images were obtained through the abdomen and pelvis after administration of intravenous contrast. DATE: January 12, 2018. COMPARISON: CT abdomen pelvis August 28, 2017. INDICATION: 22-year-old female, abdominal pain, diarrhea. Elevated white blood cell count. FINDINGS: The visualized lung bases are clear. The heart is not enlarged. There is no identified pericardial effusion. The liver is normal in size and contour. There is no identified liver lesion. The main, right, and left portal veins are patent. The gallbladder is not well seen and may be surgically absent or contracted. There is no intrahepatic or extrahepatic bile duct dilation. The main pancreatic duct is not abnormally dilated. Unremarkable appearance of the pancreatic parenchyma. The spleen is not enlarged. The adrenal glands are unremarkable. Unremarkable appearance of the renal parenchyma. The urinary collecting systems are not distended. There is no identified renal or ureteral stone. The urinary bladder is collapsed and not well evaluated. Grossly unremarkable appearance of the uterus and adnexa on CT. The intestinal tract is not distended. The appendix is best localized on coronal image 30 and adjacent sequential images. There is no evidence of acute appendicitis. There are prominent right lower quadrant lymph nodes on coronal image 30 and adjacent sequential images measuring up to approximately 7 mm in short axis. There are multiple additional subcentimeter short axis mesenteric lymph nodes. There is nonspecific alba mesenteric stranding. There is no identified free intraperitoneal air. There is a small fat-containing umbilical hernia. There is no sizable volume of free pelvic fluid. There is no well marginated drainable fluid collection. There is no identified acute bony abnormality. IMPRESSION: CT ABDOMEN AND PELVIS. 1. No evidence of acute appendicitis or other acute abnormality in the abdomen or pelvis. 2. Multiple prominent right lower quadrant and additional mesenteric lymph nodes with nonspecific alba mesenteric stranding which appears similar to August 28, 2017. No splenomegaly. Dictated by: Dictated on workstation # [id number]
[2018-01-12] MEDS ORDERED: ONDA8TAB13 PO (16:13)
[2018-01-12 16:18] VITALS: BP 127/89
== END 2018-01-12 16:21 | disposition home or self-care (01) ==
LOC: EDUNIT# 11:32 → ER 11:34
DX: I88.0 Nonspecific mesenteric lymphadenitis (principal); D64.9 Anemia, unspecified; F41.9 Anxiety disorder, unspecified; F32.9 Major depressive disorder, single episode, unspecified; Z87.19 Personal history of other diseases of the digestive system; Z97.5 Presence of (intrauterine) contraceptive device; Z90.89 Acquired absence of other organs; Z87.891 Personal history of nicotine dependence; Z88.0 Allergy status to penicillin; Z88.1 Allergy status to other antibiotic agents
CPT/HCPCS: 36415; 71045; 74177; 80053; 81000; 83690; 84443; 84484; 84703; 85025; 86141; 93005; 96361; 96374; 96375

== ENCOUNTER 2018-03-01 12:08 | Emergency (ER) | payer OTHER, MEDICAID ==
[~2018-03-01] VITALS: Ht 167.6 cm; Wt 108.9 kg
[~2018-03-01 12:08] MED LIST changes: +ONDA8TAB13 PO
--- NOTE | 2018-03-01 12:24 | ED General ---
General Chief Complaint: General Problems/Pain Stated Complaint: ARACELY MT SPOTTED FEVER/JOINTS ACHING/AMS Source of Information: Patient, Family Exam Limitations: No Limitations History of Present Illness Date Seen by Provider: Mar 01, 2018 Time Seen by Provider: 12:23 Initial Comments This 22-year-old white female presents with a history of joint pain, fever, and recent Boyce spotted fever. The patient was diagnosed and doxycycline was started on the patient 5 days ago [facility]. BM patient's IgG for Boyce spotted fever was elevated but her IgM was normal. The patient's laboratory evaluation at [facility] demonstrated a normal platelet count. The patient responded apparently to the doxycycline until this morning when she became confused, developed stuttering and slurred speech, and complained of severe headache and myalgias. Although there was a self-limited rash on the left forearm there was never a diffuse rash noted on the patient's presentations to [facility]. The patient's Lyme's test was negative. There was a questionable history of a tick bite to the right anterior superior iliac crest. No evidence in the way of a residual eschar was appreciated on exam here today. Allergies and Home Medications Allergies Coded Allergies: Penicillins (Verified Allergy, Intermediate, HIVES, 04/25/14) meropenem (Verified Allergy, Intermediate, HIVES, 08/04/16) FLUSHING Home Medications Ciprofloxacin HCl 500 Mg Tablet, 500 MG PO BID Prescribed by: ARIA MUNIZ on 08/28/172101 Citalopram Hydrobromide 20 Mg Tablet, 20 MG PO DAILY, (Reported) Hydrocodone Bit/Acetaminophen 1 Each Tablet, 1-2 TAB PO Q4H PRN for PAIN Prescribed by: JARETH CASAS on 09/05/16 0949 Lactobacillus Acidophilus 1 Each Capsule, 2 EACH PO QID Prescribed by: ARIA MUNIZ on 08/28/172101 Lactose-Reduced Food 237 Ml Liquid, 237 ML PO TID, (Reported) Meloxicam 7.5 Mg Tablet, 7.5 MG PO DAILY Prescribed by: ARIA MUNIZ on 08/28/172101 Metronidazole 500 Mg Tablet, 500 MG PO QID Prescribed by: ARIA MUNIZ on 08/28/172101 Ondansetron 8 Mg Tab.rapdis, 8 MG PO Q6H PRN for NAUSEA/VOMITING-1ST LINE Prescribed by: NATALIA STEINER on 01/12/18 1613 Patient Home Medication List Home Medication List Reviewed: Yes Review of Systems Constitutional: No chills; fever, malaise, weakness EENTM: No hearing loss, No blurred vision, No vision loss, No epistaxis Respiratory: No cough, No short of breath Cardiovascular: No chest pain, No palpitations Gastrointestinal: No abdominal pain, No diarrhea, No vomiting Genitourinary: no symptoms reported Musculoskeletal: joint pain (patient is complaining of diffuse joint and muscle pain.), muscle pain Skin: No rash Psychiatric/Neurological: No Symptoms Reported Hematologic/Lymphatic: No Symptoms Reported Immunological/Allergic: no symptoms reported Past Ydlobcj-Hznlps-Srxqff Hx Past Med/Social Hx: Reviewed Nursing Past Med/Soc Hx Patient Social History Type Used: Cigarettes Former Smoker, Quit: Nov 14, 2017 2nd Hand Smoke Exposure: Yes Recent Foreign Travel: No Contact w/Someone Who Travel: No Recent Hopitalizations: No Immunizations Up To Date Tetanus Booster (TDap): Less than 5yrs PED Vaccines UTD: Yes Date of Influenza Vaccine: Jun 04, 2016 Seasonal Allergies Seasonal Allergies: No Past Medical History Surgeries: Yes (BMT's, ERCP) Adenoidectomy, Ear Surgery, Gallbladder, Tonsillectomy Respiratory: No Currently Using CPAP: No Currently Using BIPAP: No Cardiac: No Neurological: No 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 Disorders: No 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 Sexually Transmitted Disease: No HIV/AIDS: No Genitourinary: No Gastrointestinal: Yes Pancreatitis, Gall Bladder Disease Musculoskeletal: Yes Scoliosis Endocrine: No HEENT: No Loss of Vision: Bilateral Hearing Impairment: Denies Cancer: No Psychosocial: Yes Anxiety, Depression Integumentary: No Blood Disorders: Yes (ANEMIA) Adverse Reaction/Blood Tranf: No Family Medical History FH: gallbladder disease 19 MOTHER High cholesterol 19 FATHER Hypertension 19 FATHER Hypoglycemia 19 FATHER G8 BROTHER Diabetes, Hypertension Physical Exam Vital Signs Vital Signs - First Documented 03/01/18 12:10 Temp 97.5 Pulse 102 Resp 16 B/P (MAP) 148/88 (108) Pulse Ox 96 O2 Delivery Room Air Capillary Refill : General Appearance: Mild Distress Eyes: Bilateral Eye Normal Inspection HEENT: PERRL/EOMI, Normal ENT Inspection, Pharynx Normal Neck: Full Range of Motion, Normal Inspection, Non Tender Respiratory: Chest Non Tender, Lungs Clear, Normal Breath Sounds Cardiovascular: Regular Rate, Rhythm, No Edema, No Gallop Gastrointestinal: Normal Bowel Sounds, No Pulsatile Mass, Non Tender, Soft Back: Normal Inspection Extremity: Normal Capillary Refill, Normal Inspection, Normal Range of Motion Neurologic/Psychiatric: Oriented x3, No Motor/Sensory Deficits, Other ( although the patient does not have any clear lateralizing or localizing neurologic findings her speech appears intermittently slurred and she stutters.) Skin: Normal Color, Warm/Dry; No Rash Focused Exam Lactate Level 03/01/18 12:30: Lactic Acid Level 0.74 Lactic Acid Level Laboratory Tests Test 03/01/18 12:30 Lactic Acid Level 0.74 MMOL/L (0.50-2.00) Progress/Results/Core Measures Suspected Sepsis SIRS Temperature: Pulse: Respiratory Rate: Laboratory Tests 03/01/18 12:30: White Blood Count 6.2 Blood Pressure / Mean: 03/01/18 12:30: Lactic Acid Level 0.74 Laboratory Tests 03/01/18 12:30: Creatinine 0.74, Platelet Count 313, Total Bilirubin 0.7 Results/Orders Lab Results Laboratory Tests Test 03/01/18 12:30 03/01/18 13:41 03/01/18 13:57 Range/Units White Blood Count 6.2 4.3-11.0 10^3/uL Red Blood Count 4.89 4.35-5.85 10^6/uL Hemoglobin 13.6 11.5-16.0 G/DL Hematocrit 39 35-52 % Mean Corpuscular Volume 81 80-99 FL Mean Corpuscular Hemoglobin 28 25-34 PG Mean Corpuscular Hemoglobin Concent 35 32-36 G/DL Red Cell Distribution Width 13.8 10.0-14.5 % Platelet Count 313 130-400 10^3/uL Mean Platelet Volume 9.7 7.4-10.4 FL Neutrophils (%) (Auto) 67 42-75 % Lymphocytes (%) (Auto) 23 12-44 % Monocytes (%) (Auto) 8 0-12 % Eosinophils (%) (Auto) 2 0-10 % Basophils (%) (Auto) 0 0-10 % Neutrophils # (Auto) 4.2 1.8-7.8 X 10^3 Lymphocytes # (Auto) 1.4 1.0-4.0 X 10^3 Monocytes # (Auto) 0.5 0.0-1.0 X 10^3 Eosinophils # (Auto) 0.1 0.0-0.3 10^3/uL Basophils # (Auto) 0.0 0.0-0.1 10^3/uL Neutrophils % (Manual) 64 % Lymphocytes % (Manual) 17 % Monocytes % (Manual) 17 % Eosinophils % (Manual) 2 % Basophils % (Manual) 0 % Band Neutrophils 0 % Blood Morphology Comment NORMAL Erythrocyte Sedimentation Rate 11 0-20 MM/HR Sodium Level 140 135-145 MMOL/L Potassium Level 4.0 3.6-5.0 MMOL/L Chloride Level 109 H 98-107 MMOL/L Carbon Dioxide Level 21 21-32 MMOL/L Anion Gap 10 5-14 MMOL/L Blood Urea Nitrogen 11 7-18 MG/DL Creatinine 0.74 0.60-1.30 MG/DL Estimat Glomerular Filtration Rate > 60 BUN/Creatinine Ratio 15 Glucose Level 90 70-105 MG/DL Lactic Acid Level 0.74 0.50-2.00 MMOL/L Calcium Level 9.4 8.5-10.1 MG/DL Total Bilirubin 0.7 0.1-1.0 MG/DL Aspartate Amino Transf (AST/SGOT) 22 5-34 U/L Alanine Aminotransferase (ALT/SGPT) 22 0-55 U/L Alkaline Phosphatase 67 40-136 U/L Troponin I < 0.30 <0.30 NG/ML C-Reactive Protein High Sensitivity 0.94 H 0.00-0.50 MG/DL Total Protein 7.7 6.4-8.2 GM/DL Albumin 4.2 3.2-4.5 GM/DL Smear Scan YES Urine Color YELLOW Urine Clarity CLEAR Urine pH 5 5-9 Urine Specific [place] 1.005 L 1.016-1.022 Urine Protein NEGATIVE NEGATIVE Urine Glucose (UA) NEGATIVE NEGATIVE Urine Ketones NEGATIVE NEGATIVE Urine Nitrite NEGATIVE NEGATIVE Urine Bilirubin NEGATIVE NEGATIVE Urine Urobilinogen NORMAL NORMAL MG/DL Urine Leukocyte Esterase NEGATIVE NEGATIVE Urine RBC (Auto) NEGATIVE NEGATIVE Urine RBC NONE /HPF Urine WBC NONE /HPF Urine Squamous Epithelial Cells NONE /HPF Urine Crystals NONE /LPF Urine Bacteria NEGATIVE /HPF Urine Casts NONE /LPF Urine Mucus NEGATIVE /LPF Urine Culture Indicated NO My Orders Orders - ADRIANA TORRES MD Cbc With Automated Diff (03/01/18 12:21) Erythrocyte Sedimentation Rate (03/01/18 12:21) Ct Head Wo (03/01/18 12:21) Ua Culture If Indicated (03/01/18 12:21) Tick Panel With Lyme Eia (03/01/18 12:21) Hs C Reactive Protein (03/01/18 12:21) Ekg Tracing (03/01/18 12:22) Troponin I (03/01/18 12:22) Blood Culture (03/01/18 12:25) Lactic Acid Analyzer (03/01/18 12:25) Ns Iv 1000 Ml (Sodium Chloride 0.9%) (03/01/18 12:30) West Nile Virus Igg & M (03/01/18 12:40) Manual Differential (03/01/18 12:30) Fentanyl Injection (Sublimaze Injection (03/01/18 13:30) Comprehensive Metabolic Panel (03/01/18 13:56) Fentanyl Injection (Sublimaze Injection (03/01/18 14:30) Medications Given in ED Current Medications Medications Dose Ordered Sig/Corey Route Start Time Stop Time Status Last Admin Dose Admin Fentanyl Citrate 50 mcg ONCE ONCE IVP 03/01/18 13:30 03/01/18 13:31 DC 03/01/18 13:34 50 MCG Fentanyl Citrate 50 mcg ONCE ONCE IVP 03/01/18 14:30 03/01/18 14:31 DC 03/01/18 14:24 50 MCG Vital Signs/I&O 03/01/18 12:10 Temp 97.5 Pulse 102 Resp 16 B/P (MAP) 148/88 (108) Pulse Ox 96 O2 Delivery Room Air Capillary Refill : Progress Note : Time: 14:38 Progress Note The patient's laboratory and radiographic evaluation demonstrated attenuation of the left parietal temporal occipital lobes on CT suggestive of edema, infarct , or other cause. These findings on CT were new for the patient since her last study on August 2016. The remainder the patient's laboratory evaluation was essentially unremarkable. I repeated tic titers. I ordered an IgG and IgM for West Nile. The lab was kind enough to examine the patient's peripheral smear for evidence of babesiosis. There is no evidence of intracellular parasites on their evaluation. The patient was treated with fentanyl for her pain. Telephone consultation was undertaken with [facility] and Dr. Anastasiia Sinha was kind enough to accept patient in transfer. Departure Impression Primary Impression: Stroke Qualified Codes: I63.512 - Cerebral infarction due to unspecified occlusion or stenosis of left middle cerebral artery Disposition: 02 XFER SHT-TRM HOSP Condition: Unchanged Transfer Time Spoke to Accepting Phy: 14:[address] Sinha at Transfer Time: 14:52 Transfer Facility: Method of Transfer: EMS Departure-Patient Inst. Referrals: [facility] (PCP/Family) Primary Care Physician ADRIANA TORRES MD Mar 01, 2018 12:24
[2018-03-01] MEDS ORDERED: NS IV 1000 ML 1,000 ML IV SCH (12:30)
[2018-03-01 12:43] LABS: BASOPHILS % (AUTO) 0 % (0-10); EOSINOPHILS # (AUTO) 0.1 10^3/uL (0.0-0.3); EOSINOPHILS % (AUTO) 2 % (0-10); HEMATOCRIT 39 % (35-52); HEMOGLOBIN 13.6 G/DL (11.5-16.0); LYMPHOCYTES # (AUTO) 1.4 X 10^3 (1.0-4.0); LYMPHOCYTES % (AUTO) 23 % (12-44); MEAN CORPUSCULAR HEMOGLOBIN 28 PG (25-34); MEAN CORPUSCULAR HGB CONC 35 G/DL (32-36); MEAN CORPUSCULAR VOLUME 81 FL (80-99); MEAN PLATELET VOLUME 9.7 FL (7.4-10.4); MONOCYTES # (AUTO) 0.5 X 10^3 (0.0-1.0); MONOCYTES % (AUTO) 8 % (0-12); NEUTROPHILS # (AUTO) 4.2 X 10^3 (1.8-7.8); NEUTROPHILS % (AUTO) 67 % (42-75); PLATELET COUNT 313 10^3/uL (130-400); RED BLOOD COUNT 4.89 10^6/uL (4.35-5.85); RED CELL DISTRIBUTION WIDTH 13.8 % (10.0-14.5); WHITE BLOOD COUNT 6.2 10^3/uL (4.3-11.0)
[2018-03-01 13:15] LABS: ERYTHROCYTE SEDIMENTATION RATE 11 MM/HR (0-20)
--- NOTE | 2018-03-01 13:19 | Diagnostic Imaging Report ---
Procedure: CT head without contrast. Technique: Multiple contiguous axial images were obtained through the brain without the use of intravenous contrast. Indication: Altered mental status, lethargy, stiff neck. Comparison: 09/03/2016. Discussion: Abnormal low attenuation involving the left temporal lobe and posterior left parietal occipital lobe is nonspecific. The changes posteriorly appear slightly increased from the previous exam. Changes within the temporal lobe appear new. Findings could be seen with edema, infarct, or other etiologies. Artifact could also contribute to these findings. Recommend brain MRI with contrast for further evaluation. No acute intracranial hemorrhage, mass, midline shift, or hydrocephalus. The orbits, sinuses, mastoid air cells, and calvarium are unremarkable. Impression: 1. Abnormal low attenuation within the left temporal lobe and left parietal occipital lobe posteriorly is indeterminate. No abnormal extra-axial fluid collection identified. Recommend brain MRI with contrast for further evaluation. Dictated by: Dictated on workstation # [id number]
[2018-03-01] MEDS ORDERED: fentaNYL INJECTION 100 MCG/2 ML AMP IVP ONE ×2 (13:30→14:30)
[2018-03-01 13:57] LABS: BAND NEUTROPHILS 0 %; LYMPHOCYTES % (MANUAL) 17 %; NEUTROPHILS % (MANUAL) 64 %
[2018-03-01 13:58] LABS: BASOPHILS % (MANUAL) 0 %; EOSINOPHILS % (MANUAL) 2 %; MONOCYTES % (MANUAL) 17 %; RBC MORPH NORMAL
[2018-03-01 13:59] LABS: SMEAR SCAN COMMENT YES
[2018-03-01 14:05] LABS: BILIRUBIN,URINE NEGATIVE (NEGATIVE); CLARITY,URINE CLEAR; COLOR,URINE YELLOW; GLUCOSE, URINE (UA) NEGATIVE (NEGATIVE); KETONES,URINE NEGATIVE (NEGATIVE); LEUKOCYTE ESTERASE ,URINE NEGATIVE (NEGATIVE); NITRITE,URINE NEGATIVE (NEGATIVE); PH,URINE 5 (5-9); PROTEIN,URINE NEGATIVE (NEGATIVE); UROBILINOGEN,URINE NORMAL (NORMAL)
[2018-03-01 14:11] LABS: BACTERIA,URINE NEGATIVE /HPF
[2018-03-01 14:27] LABS: ALANINE AMINOTRANSFERASE 22 U/L (0-55); ALBUMIN 4.2 GM/DL (3.2-4.5); ALKALINE PHOSPHATASE 67 U/L (40-136); BILIRUBIN,TOTAL 0.7 MG/DL (0.1-1.0); BUN/CREATININE RATIO 15; CALCIUM 9.4 MG/DL (8.5-10.1); CARBON DIOXIDE 21 MMOL/L (21-32); CHLORIDE 109 MMOL/L (98-107); CREATININE SERUM 0.74 MG/DL (0.60-1.30); GFR ESTIMATED > 60; GLUCOSE 90 MG/DL (70-105); SODIUM 140 MMOL/L (135-145); TOTAL PROTEIN 7.7 GM/DL (6.4-8.2)
[2018-03-01 15:34] VITALS: BP 140/109
== END 2018-03-01 15:34 | disposition short-term general hospital (02) ==
LOC: EDUNIT# 12:08 → ER 12:10
DX: I63.9 Cerebral infarction, unspecified (principal); D64.9 Anemia, unspecified; F41.9 Anxiety disorder, unspecified; F32.9 Major depressive disorder, single episode, unspecified; Z87.19 Personal history of other diseases of the digestive system; Z90.89 Acquired absence of other organs; Z97.5 Presence of (intrauterine) contraceptive device; Z87.891 Personal history of nicotine dependence; Z88.0 Allergy status to penicillin; Z88.1 Allergy status to other antibiotic agents
CPT/HCPCS: 36415; 70450; 80053; 81000; 83605; 84484; 85007; 85027; 85652; 86141; 86618; 86666; 86668; 86757; 86788; 86789; 87040; 93005; 96361; 96374; 96376

== ENCOUNTER → 2018-09-29 | Outpatient (CLI) | payer MEDICAID, OTHER ==
[~2018-09-29] MED LIST changes: -OXYC-197 PO; +OXYC1TAB87 PO
--- NOTE | 2018-09-29 13:48 | Diagnostic Imaging Report ---
PROCEDURE: US OB SINGLE FETUS <14 WKS. TECHNIQUE: Multiple real-time grayscale images were obtained over the gravid uterus in various projections. INDICATION: dating and right-sided pelvic pain. FINDINGS: There is an intrauterine gestational sac containing a pole. [place]way-rump measurement is approximately 11 mm consistent with 7 weeks 2 days gestation. heart rate was recorded at 153 beats per minute. Gestational sac shape is within normal limits. No perigestational sac hemorrhage is seen. Adnexal evaluation does show a 1.9 cm cyst involving the right ovary. The left ovary was obscured by bowel gas. IMPRESSION: Single live IUP 7 weeks 2 days gestational age. Estimated date of confinement sonographically is 05/16/2019. Dictated by: Dictated on workstation # [id number]
== END ==
LOC: RAD 12:59
PROVIDERS: ATTEND Registered Nurse
DX: O26.891 Other specified pregnancy related conditions, first trimester (principal); R10.2 Pelvic and perineal pain; Z3A.01 Less than 8 weeks gestation of pregnancy
CPT/HCPCS: 76801

== ENCOUNTER 2018-11-07 14:29 | Emergency (ER) | payer MEDICAID ==
[~2018-11-07] VITALS: Ht 165.1 cm; Wt 99.8 kg
--- NOTE | 2018-11-07 15:32 | NUR ---
PATIENT TO ULTRASOUND VIA WHEELCHAIR WITH TECH.
--- NOTE | 2018-11-07 15:54 | NUR ---
BLOOD FOR LABS DRAWN BY SCREEN MAKING SUPERVISOR.
--- NOTE | 2018-11-07 15:59 | ED GU-Female ---
General Chief Complaint: -Female Stated Complaint: SPOTTING/12 WK Nursing Triage Note: PATIENT AMBULATORY TO ER WITH COMPLAINT OF BEING 12 AND 1/2 WEEKS . PATIENT STATES SHE HAS BEEN CRAMPING X 3 WEEKS AND HAVING VAGINAL SPOTTING X 2 WEEKS.SHE ALSO COMPLAINS OF RIGHT LOWER QUADRANT ABDOMINAL PAIN. PATIENT STATES SHE CALLED DR. CASAS TODAY WHO ADVISED HER TO COME TO ER. THIS IS HER 3RD . PATIENT STATES SHE WAS DIAGNOSED WITH A 2CM CYST ON RIGHT OVARY AT 7 WEEKS GESTATION. Nursing Sepsis Screen: No Definite Risk Source: patient Exam Limitations: no limitations History of Present Illness Date Seen by Provider: Nov 07, 2018 Time Seen by Provider: 14:48 Initial Comments 23-year-old female who presents to the emergency room with complaints of spotting for the past 2 weeks. She denies any heavy vaginal bleeding and has not even using pads but has noticed some blood on the toilet paper when she urinates. 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 She has a history of ovarian cysts on her right ovary during this . Timing/Duration: other (2 weeks) Associated Symptoms: denies symptoms Allergies and Home Medications Allergies Coded Allergies: Penicillins (Verified Allergy, Intermediate, HIVES, 04/25/14) meropenem (Verified Allergy, Intermediate, HIVES, 08/04/16) FLUSHING Home Medications Ciprofloxacin HCl 500 Mg Tablet, 500 MG PO BID Prescribed by: ARIA MUNIZ on 08/28/172101 Citalopram Hydrobromide 20 Mg Tablet, 20 MG PO DAILY, (Reported) Hydrocodone Bit/Acetaminophen 1 Each Tablet, 1-2 TAB PO Q4H PRN for PAIN Prescribed by: JARETH CASAS on 09/05/16 0949 Lactobacillus Acidophilus 1 Each Capsule, 2 EACH PO QID Prescribed by: ARIA MUNIZ on 08/28/172101 Lactose-Reduced Food 237 Ml Liquid, 237 ML PO TID, (Reported) Meloxicam 7.5 Mg Tablet, 7.5 MG PO DAILY Prescribed by: ARIA MUNIZ on 08/28/172101 Metronidazole 500 Mg Tablet, 500 MG PO QID Prescribed by: ARIA MUNIZ on 08/28/172101 Ondansetron 8 Mg Tab.rapdis, 8 MG PO Q6H PRN for NAUSEA/VOMITING-1ST LINE Prescribed by: NATALIA STEINER on 01/12/18 1613 Patient Home Medication List Home Medication List Reviewed: Yes Review of Systems Review of Systems Constitutional: no symptoms reported, see HPI Genitourinary: see HPI, other (spotting for 2 weeks) : Yes Expected Date of Delivery: May 17, 2019 All Other Systemes Reviewed Negative Unless Noted: Yes Past Fiemjnc-Yxvmqz-Obsrrn Hx Past Med/Social Hx: Reviewed Nursing Past Med/Soc Hx Patient Social History Alcohol Use: Denies Use Recreational Drug Use: No Smoking Status: Former Smoker Type Used: Cigarettes Former Smoker, Quit: Sep 15, 2018 2nd Hand Smoke Exposure: Yes Recent Foreign Travel: No Contact w/Someone Who Travel: No Recent Infectious Disease Expo: No Recent Hopitalizations: No Physical Abuse: No Sexual Abuse: No Mistreated: No Fear: No Immunizations Up To Date Tetanus Booster (TDap): Less than 5yrs PED Vaccines UTD: Yes Date of Influenza Vaccine: Jun 04, 2016 Seasonal Allergies Seasonal Allergies: No Past Medical History Surgeries: Yes (BMT's, ERCP) Adenoidectomy, Ear Surgery, Gallbladder, Tonsillectomy Respiratory: No Currently Using CPAP: No Currently Using BIPAP: No Cardiac: No Neurological: No : Yes (DUE DATE 05/17/19) Expected Date of Delivery: May 17, 2019 Last Menstrual Period: Aug 10, 2018 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 Sexually Transmitted Disease: No HIV/AIDS: No Genitourinary: No Gastrointestinal: Yes Gastroesophageal Reflux, Pancreatitis, Gall Bladder Disease Musculoskeletal: Yes Scoliosis Endocrine: No HEENT: No Loss of Vision: Bilateral Hearing Impairment: Denies Cancer: No Psychosocial: Yes Anxiety, Depression Integumentary: No Blood Disorders: Yes (ANEMIA) Adverse Reaction/Blood Tranf: No Family Medical History Reviewed Nursing Family Hx FH: gallbladder disease 19 MOTHER High cholesterol 19 FATHER Hypertension 19 FATHER Hypoglycemia 19 FATHER G8 BROTHER Diabetes, Hypertension Physical Exam Vital Signs Vital Signs - First Documented 11/07/18 11/07/18 14:40 16:48 Temp 98.4 Pulse 94 Resp 16 B/P (MAP) 121/75 (90) Pulse Ox 98 O2 Delivery Room Air Capillary Refill : Less Than 3 Seconds Height, Weight, BMI Height: 5'5.00" Weight: 220lbs. 1.0oz. 99.664896hh; 29.7 BMI Method:Stated General Appearance: WD/WN, no apparent distress Cardiovascular: normal peripheral pulses, regular rate, rhythm, no edema, no gallop, no JVD, no murmur Respiratory: chest non-tender, lungs clear, normal breath sounds, no respiratory distress, no accessory muscle use, respiratory distress Gastrointestinal: normal bowel sounds, non tender, soft, no organomegaly, no pulsatile mass, abnormal bowel sounds Extremities: normal capillary refill Neurologic/Psychiatric: alert, normal mood/affect, oriented x 3 Skin: normal color, warm/dry Progress/Results/Core Measures Suspected Sepsis Recent Fever Within 48 Hours: No Infection Criteria Present: None New/Unexplained Altered Menta: No Sepsis Screen: No Definite Risk SIRS Temperature:98.4 Pulse: 94 Respiratory Rate: Laboratory Tests 11/07/18 15:52: White Blood Count 9.6 Blood Pressure 121 /75 Mean: 90 Laboratory Tests 11/07/18 15:52: Creatinine 0.63, Platelet Count 282, Total Bilirubin 0.5 Results/Orders My Orders Vital Signs/I&O Capillary Refill : Less Than 3 Seconds Blood Pressure Mean: 90 Progress Note : Time: 15:57 Progress Note I have seen and evaluated the patient. I have informed her of her imaging and laboratory studies. She has an appointment with Dr Casas next week. She agrees with plan of care, plans for discharge, return precautions were given. Diagnostic Imaging Diagonstic Imaging: Ultrasound Plain Films/CT/US/NM/MRI: pelvis Comments NAME: PEGGY RAMSAY [facility] REC#: [id number] PHYSICIAN: MEGHAN HUNTER CC: ROSALBA HUNTER THOMAS D Page 1 of 1 RADIOLOGY REPORT [facility] [place] [place] CC: ROSALBA HUNTER THOMAS D Page 1 of 1 RADIOLOGY REPORT NAME: PEGGY RAMSAY [facility] REC#: [id number] PT STATUS: DEP ER : 1995 PHYSICIAN: MEGHAN HUNTER ADMIT DATE: 11/07/18/ER Signed Date of Exam: 11/07/18 US OB SINGLE FETUS<14 [id number] PROCEDURE: US OB single fetus <14 wks. TECHNIQUE: Multiple real-time grayscale images were obtained over the gravid uterus in various projections. INDICATION: Spotting for two weeks. FINDINGS: Gestation measures 12 weeks 6 days reflecting normal interval growth from the initial exam. Sonographic date of confinement is 05/16/2019. Variable positioning is noted. The placenta is posterior and extends caudally to cover the cervical os at this time. Followup in the late second or early third trimester recommended to exclude a persistent previa. No retroplacental fluid collection. heart rate is regular at 146 beats per minute. IMPRESSION: Normal growth with a 12 week 6 day pereira viable IUP. Posterior placenta covering the cervix at this time. Followup recommended. No evidence for abruption. Dictated by: Dictated on workstation # [id number] Dict: 11/07/18 1614 Trans: 11/07/181739 Interpreted by: JUAN LUIS FRANKLIN Electronically signed by: JUAN LUIS FRANKLIN 11/07/181739 Reviewed: Reviewed by Id Departure Impression Primary Impression: Placenta previa in first trimester Disposition: 01 HOME, SELF-CARE Condition: Stable/Unchanged Departure-Patient Inst. Decision time for Depature: 15:57 Referrals: [facility] (PCP/Family) Primary Care Physician Patient Instructions: Placenta Previa Add. Discharge Instructions: Keep your appointment as scheduled with Dr. Casas next week. Complete pelvic rest until you follow up with Dr. Casas. Return back to the emergency room for worsening vaginal bleeding, worsening symptoms, or any other concerns as needed. All discharge instructions reviewed with patient and/or family. Voiced understanding. Copy Copies To 1: JARETH CASAS MD, TRAVIS Nov 07, 2018 15:58
[2018-11-07 16:06] LABS: BASOPHILS % (AUTO) 0 % (0-10); EOSINOPHILS % (AUTO) 0 % (0-10); HEMATOCRIT 37 % (35-52); HEMOGLOBIN 12.5 G/DL (11.5-16.0); LYMPHOCYTES # (AUTO) 1.3 X 10^3 (1.0-4.0); LYMPHOCYTES % (AUTO) 14 % (12-44); MEAN CORPUSCULAR HEMOGLOBIN 28 PG (25-34); MEAN CORPUSCULAR HGB CONC 34 G/DL (32-36); MEAN CORPUSCULAR VOLUME 82 FL (80-99); MEAN PLATELET VOLUME 10.3 FL (7.4-10.4); MONOCYTES # (AUTO) 0.5 X 10^3 (0.0-1.0); MONOCYTES % (AUTO) 5 % (0-12); NEUTROPHILS # (AUTO) 7.7 X 10^3 (1.8-7.8); NEUTROPHILS % (AUTO) 81 % (42-75); PLATELET COUNT 282 10^3/uL (130-400); RED CELL DISTRIBUTION WIDTH 14.4 % (10.0-14.5); WHITE BLOOD COUNT 9.6 10^3/uL (4.3-11.0)
--- NOTE | 2018-11-07 16:20 | Diagnostic Imaging Report ---
PROCEDURE: US OB single fetus <14 wks. TECHNIQUE: Multiple real-time grayscale images were obtained over the gravid uterus in various projections. INDICATION: Spotting for two weeks. FINDINGS: Gestation measures 12 weeks 6 days reflecting normal interval growth from the initial exam. Sonographic date of confinement is 05/16/2019. Variable positioning is noted. The placenta is posterior and extends caudally to cover the cervical os at this time. Followup in the late second or early third trimester recommended to exclude a persistent previa. No retroplacental fluid collection. heart rate is regular at 146 beats per minute. IMPRESSION: Normal growth with a 12 week 6 day pereira viable IUP. Posterior placenta covering the cervix at this time. Followup recommended. No evidence for abruption. Dictated by: Dictated on workstation # [id number]
[2018-11-07 16:21] LABS: ALANINE AMINOTRANSFERASE 16 U/L (0-55); ALBUMIN 3.7 GM/DL (3.2-4.5); ALKALINE PHOSPHATASE 51 U/L (40-136); BILIRUBIN,TOTAL 0.5 MG/DL (0.1-1.0); BUN/CREATININE RATIO 8; CALCIUM 9.4 MG/DL (8.5-10.1); CARBON DIOXIDE 23 MMOL/L (21-32); CHLORIDE 105 MMOL/L (98-107); CREATININE SERUM 0.63 MG/DL (0.60-1.30); GFR ESTIMATED > 60; GLUCOSE 85 MG/DL (70-105); POTASSIUM 3.3 MMOL/L (3.6-5.0); SODIUM 136 MMOL/L (135-145); TOTAL PROTEIN 6.8 GM/DL (6.4-8.2)
[2018-11-07 16:48] VITALS: BP 97/67
== END 2018-11-07 16:50 | disposition home or self-care (01) ==
LOC: EDUNIT# 14:29 → ER 14:32
DX: O44.01 Complete placenta previa NOS or without hemorrhage, first trimester (principal); O99.611 Diseases of the digestive system complicating pregnancy, first trimester; K21.9 Gastro-esophageal reflux disease without esophagitis; O99.89 Other specified diseases and conditions complicating pregnancy, childbirth and the puerperium; M41.9 Scoliosis, unspecified; O99.341 Other mental disorders complicating pregnancy, first trimester; F41.9 Anxiety disorder, unspecified; F32.9 Major depressive disorder, single episode, unspecified; O99.011 Anemia complicating pregnancy, first trimester; D64.9 Anemia, unspecified; Z82.49 Family history of ischemic heart disease and other diseases of the circulatory system; Z88.0 Allergy status to penicillin; Z88.8 Allergy status to other drugs, medicaments and biological substances; Z3A.12 12 weeks gestation of pregnancy; Z87.448 Personal history of other diseases of urinary system; Z87.891 Personal history of nicotine dependence; Z90.89 Acquired absence of other organs; Z87.19 Personal history of other diseases of the digestive system
CPT/HCPCS: 36415; 76801; 80053; 84702; 85025

== ENCOUNTER 2018-11-15 11:11 | Outpatient (CLI) | payer MEDICAID ==
--- NOTE | 2018-11-15 11:15 | NUR ---
PEGGY RAMSAY presented to unit via amb from home, accompanied by spouse and child ,for rhogam injection.
--- NOTE | 2018-11-15 12:40 | NUR ---
RHOGAM GIVEN DOCUMENTED ON INTERVENTION BY STEPHEN Mai STUDENT NURSE.
--- NOTE | 2018-11-15 12:44 | NUR ---
DISMISSED AMB FROM [facility] IN STABLE CONDITION ACC BY S.O. AND CHILDREN.
== END 2018-11-15 12:44 | disposition home or self-care (01) ==
LOC: WSo 11:11
PROVIDERS: ATTEND Family Medicine
DX: Z31.82 Encounter for Rh incompatibility status (principal)
CPT/HCPCS: 86850; 96372

== ENCOUNTER 2018-11-22 07:03 | Emergency (ER) | payer MEDICAID ==
[~2018-11-22] VITALS: Ht 165.1 cm; Wt 99.8 kg
[2018-11-22] MEDS ORDERED: OSEL75CA15 (07:25)
--- NOTE | 2018-11-22 07:30 | ED General ---
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 Nursing Sepsis Screen: No Definite Risk Source of Information: Patient Exam Limitations: No Limitations History of Present Illness Date Seen by Provider: Nov 22, 2018 Time Seen by Provider: 07:05 Initial Comments This 23-year-old woman at approximately 15 weeks gestational age presents to the emergency room with complaints of cough and congestion. She presented to [facility] on November 19 for upper airway congestion and eye irritation. She was tested for influenza and strep which both resulted negative. The next day her daughter developed a febrile illness and tested positive for influenza. Patient was started on Tamiflu that day and has been taking it. She is now on day number 3 of Tamiflu therapy. She reportedly was told to come to the emergency room if she was not getting better. She states her cough has worsened today and she has a burning sensation across her chest worsened by deep breathing, cough, and palpation. She continues to be afebrile on our assessment. She denies smoking history. Allergies and Home Medications Allergies Coded Allergies: Penicillins (Verified Allergy, Intermediate, HIVES, 04/25/14) meropenem (Verified Allergy, Intermediate, HIVES, 08/04/16) FLUSHING ketorolac (Verified Allergy, Unknown, 11/22/18) Patient Home Medication List Home Medication List Reviewed: Yes Review of Systems Review of Systems Constitutional: no symptoms reported EENTM: see HPI Respiratory: see HPI Cardiovascular: no symptoms reported Gastrointestinal: no symptoms reported; No nausea, No vomiting Genitourinary: no symptoms reported : Yes Expected Date of Delivery: May 17, 2019 Musculoskeletal: no symptoms reported Skin: no symptoms reported Psychiatric/Neurological: No Symptoms Reported Hematologic/Lymphatic: No Symptoms Reported Immunological/Allergic: no symptoms reported Past Axwaiyj-Ljoble-Ajqzec Hx Past Med/Social Hx: Reviewed and Corrections made Patient Social History Alcohol Use: Denies Use Recreational Drug Use: No Type Used: Cigarettes Former Smoker, Quit: Sep 15, 2018 2nd Hand Smoke Exposure: Yes Recent Foreign Travel: No Contact w/Someone Who Travel: No Recent Infectious Disease Expo: No Recent Hopitalizations: No Immunizations Up To Date Tetanus Booster (TDap): Less than 5yrs PED Vaccines UTD: Yes Date of Influenza Vaccine: Jun 04, 2016 Seasonal Allergies Seasonal Allergies: No Past Medical History Surgeries: Yes (BMT's, ERCP) Adenoidectomy, Ear Surgery, Gallbladder, Tonsillectomy Respiratory: No Currently Using CPAP: No Currently Using BIPAP: No Cardiac: No Neurological: No : Yes Expected Date of Delivery: May 17, 2019 Last Menstrual Period: Jun 10, 2018 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 Disorders: 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 (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 Sexually Transmitted Disease: No HIV/AIDS: No Genitourinary: No Gastrointestinal: Yes Gastroesophageal Reflux, Pancreatitis, Gall Bladder Disease Musculoskeletal: Yes Scoliosis Endocrine: No HEENT: No Loss of Vision: Bilateral Hearing Impairment: Denies Cancer: No Psychosocial: Yes Anxiety, Depression Integumentary: No Blood Disorders: Yes (ANEMIA) Adverse Reaction/Blood Tranf: No Family Medical History Reviewed Nursing Family Hx FH: gallbladder disease 19 MOTHER High cholesterol 19 FATHER Hypertension 19 FATHER Hypoglycemia 19 FATHER G8 BROTHER Diabetes, Hypertension Physical Exam Vital Signs Vital Signs - First Documented 11/22/18 07:18 Temp 99.2 Pulse 100 Resp 18 B/P (MAP) 131/81 (98) Pulse Ox 99 O2 Delivery Room Air Capillary Refill : Less Than 3 Seconds Height, Weight, BMI Height: 5'5.00" Weight: 220lbs. 1.0oz. [id number]; 29.7 BMI Method:Stated General Appearance: No Apparent Distress, WD/WN HEENT: PERRL/EOMI, TMs Normal, Pharyngeal Erythema (mild), Other (mucous membranes moist) Neck: Normal Inspection Respiratory: Lungs Clear, Normal Breath Sounds, No Accessory Muscle Use, No Respiratory Distress; No Crackles, No Rhonci, No Wheezing; Other (upper anterior chest wall tender to palpation) Cardiovascular: No Edema, No Murmur, Tachycardia (mild, regular) Gastrointestinal: Normal Bowel Sounds, Non Tender, Soft Extremity: Normal Inspection, No Pedal Edema Neurologic/Psychiatric: Alert, Oriented x3, No Motor/Sensory Deficits, Normal 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, 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 Skin: Normal Color, Warm/Dry Progress/Results/Core Measures Suspected Sepsis Recent Fever Within 48 Hours: No Infection Criteria Present: None New/Unexplained Altered Menta: No Sepsis Screen: No Definite Risk SIRS Temperature:99.2 Pulse: 100 Respiratory Rate: 18 Blood Pressure 131 /81 Mean: 98 Results/Orders My Orders Vital Signs/I&O 11/22/18 11/22/18 07:18 07:34 Temp 99.2 Pulse 100 100 Resp 18 18 B/P (MAP) 131/81 (98) 131/81 (98) Pulse Ox 99 99 O2 Delivery Room Air Capillary Refill : Less Than 3 Seconds Blood Pressure Mean: 98 Progress Note : Progress Note Given the positive influenza exposure, patient likely has influenza. I advised symptomatic therapy. Lung exam was unremarkable. Chest x-ray was not felt necessary given normal lung exam, especially in the context of . Return precautions discussed. Work note was provided for 7 days out of work from onset of symptoms in keeping with [facility] recommendations. Departure Impression Primary Impression: Influenza-like symptoms Disposition: HOME, SELF-CARE Condition: Stable Departure-Patient Inst. Decision time for Depature: 07:29 Referrals: [facility] (PCP/Family) Primary Care Physician Patient Instructions: Flu, Adult (DC) Add. Discharge Instructions: Drink plenty of clear liquids. Complete the entire 10 doses of Tamiflu. You may take Tylenol (acetaminophen) up to 1000 mg every 6 hours as needed for fever or discomfort. You should progressively improve over the next several days. If symptoms are worsening, return to care. If you're not noticeably improving over the next 2 or 3 days, contact your primary care provider. All discharge instructions reviewed with patient and/or family. Voiced understanding. Work/School Note: Work Release Form Date Seen in the Emergency Department: Nov 22, 2018 Return to Work: Nov 26, 2018 Restrictions: Return-No Fever (24hrs) ANAT ROBIN MD Nov 22, 2018 07:30
[2018-11-22 07:34] VITALS: BP 131/81
== END 2018-11-22 07:34 | disposition home or self-care (01) ==
LOC: EDUNIT# 07:03 → ER 07:05
DX: O26.892 Other specified pregnancy related conditions, second trimester (principal); R09.81 Nasal congestion; R05 Cough; O99.612 Diseases of the digestive system complicating pregnancy, second trimester; K21.9 Gastro-esophageal reflux disease without esophagitis; O99.89 Other specified diseases and conditions complicating pregnancy, childbirth and the puerperium; M41.9 Scoliosis, unspecified; O99.342 Other mental disorders complicating pregnancy, second trimester; F41.9 Anxiety disorder, unspecified; F32.9 Major depressive disorder, single episode, unspecified; O99.012 Anemia complicating pregnancy, second trimester; D64.9 Anemia, unspecified; Z87.19 Personal history of other diseases of the digestive system; Z82.49 Family history of ischemic heart disease and other diseases of the circulatory system; Z3A.15 15 weeks gestation of pregnancy; Z88.0 Allergy status to penicillin; Z88.8 Allergy status to other drugs, medicaments and biological substances; Z88.4 Allergy status to anesthetic agent; Z87.891 Personal history of nicotine dependence; Z90.89 Acquired absence of other organs; Z97.5 Presence of (intrauterine) contraceptive device
CPT/HCPCS: 99282

== ENCOUNTER 2018-12-02 10:05 | Emergency (ER) | payer MEDICAID ==
[~2018-12-02] VITALS: Ht 165.1 cm; Wt 99.8 kg
[~2018-12-02 10:05] MED LIST changes: +OSEL75CA15
--- NOTE | 2018-12-02 10:56 | ED Abdominal Pain ---
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 Umbilical abdominal pain. This began this morning at about 2:30. She is 16 weeks gestation. She was given Zofran without improvement in symptoms. She was given IV fluids and had labs drawn including a CBC and CMP both of which were unremarkable. She reports a history of placenta previa but denies any vaginal bleeding. Timing/Duration: 12 Hours Severity/Quality: Moderate Location: Generalized Abdomen Radiation: No Radiation Associated Symptoms: Nausea/Vomiting Allergies and Home Medications Allergies Coded Allergies: Penicillins (Verified Allergy, Intermediate, HIVES, 04/25/14) meropenem (Verified Allergy, Intermediate, HIVES, 08/04/16) FLUSHING ketorolac (Verified Allergy, Unknown, 11/22/18) Patient Home Medication List Home Medication List Reviewed: Yes Review of Systems Review of Systems Constitutional: see HPI EENTM: No Symptoms Reported Respiratory: No Symptoms Reported Cardiovascular: No Symptoms Reported Gastrointestinal: See HPI, Abdominal Pain, Diarrhea, Nausea, Vomiting Genitourinary: No Symptoms Reported Musculoskeletal: no symptoms reported Skin: no symptoms reported Psychiatric/Neurological: No Symptoms Reported Endocrine: No Symptoms Reported Past Alpkivo-Nksxni-Lsbppx Hx Patient Social History Type Used: Cigarettes Former Smoker, Quit: Sep 15, 2018 2nd Hand Smoke Exposure: Yes Recent Hopitalizations: No Immunizations Up To Date Tetanus Booster (TDap): Less than 5yrs PED Vaccines UTD: Yes Date of Influenza Vaccine: Jun 04, 2016 Seasonal Allergies Seasonal Allergies: No Past Medical History Surgeries: Yes (BMT's, ERCP) Adenoidectomy, Ear Surgery, Gallbladder, Tonsillectomy Respiratory: No Currently Using CPAP: No Currently Using BIPAP: No Cardiac: No Neurological: No 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 Sexually Transmitted Disease: No HIV/AIDS: No Genitourinary: No Gastrointestinal: Yes Gastroesophageal Reflux, Pancreatitis, Gall Bladder Disease Musculoskeletal: Yes Scoliosis Endocrine: No HEENT: No Loss of Vision: Bilateral Hearing Impairment: Denies Cancer: No Psychosocial: Yes Anxiety, Depression Integumentary: No Blood Disorders: Yes (ANEMIA) Adverse Reaction/Blood Tranf: No Family Medical History FH: gallbladder disease 19 MOTHER High cholesterol 19 FATHER Hypertension 19 FATHER Hypoglycemia 19 FATHER G8 BROTHER Diabetes, Hypertension Physical Exam Vital Signs Vital Signs - First Documented 12/02/18 10:15 Temp 100.1 Pulse 74 Resp 18 B/P (MAP) 104/62 (76) Pulse Ox 99 Capillary Refill : Height/Weight/BMI Height: 5'5.00" Weight: 220lbs. 1.0oz. 99.991519vi; 29.7 BMI Method:Stated General Appearance: WD/WN, no apparent distress HEENT: PERRL/EOMI, normal ENT inspection Respiratory: no respiratory distress, no accessory muscle use Gastrointestinal: normal bowel sounds, soft Extremities: normal range of motion, non-tender Neurologic/Psychiatric: alert, normal mood/affect, oriented x 3 Skin: normal color, warm/dry Progress/Results/Core Measures Results/Orders Lab Results Laboratory Tests Test 12/02/18 10:47 Range/Units Urine Color JUD H Urine Clarity CLEAR Urine pH 7 5-9 Urine Specific [place] 1.010 L 1.016-1.022 Urine Protein 1+ H NEGATIVE Urine Glucose (UA) NEGATIVE NEGATIVE Urine Ketones 4+ H NEGATIVE Urine Nitrite NEGATIVE NEGATIVE Urine Bilirubin 1+ H NEGATIVE Urine Urobilinogen 4 H NORMAL MG/DL Urine Leukocyte Esterase 2+ H NEGATIVE Urine RBC (Auto) NEGATIVE NEGATIVE Urine RBC NONE /HPF Urine WBC 2-5 /HPF Urine Squamous Epithelial Cells 25-50 H /HPF Urine Crystals NONE /LPF Urine Bacteria MODERATE H /HPF Urine Casts NONE /LPF Urine Mucus NEGATIVE /LPF Urine Culture Indicated YES My Orders Orders - JAYSHREE NICHOLSON APRN Prochlorperazine Injection (Compazine In (12/02/18 11:00) Diphenhydramine Injection (Benadryl Inje (12/02/18 11:00) Ua Culture If Indicated (12/02/18 10:57) [place] Limited [id number] (12/02/18 10:47) Urine Culture (12/02/18 10:47) Medications Given in ED Current Medications Medications Dose Ordered Sig/Corey Route Start Time Stop Time Status Last Admin Dose Admin Diphenhydramine HCl 12.5 mg ONCE ONCE IVP 12/02/18 11:00 12/02/18 11:01 DC 12/02/18 11:05 12.5 MG Prochlorperazine Edisylate 5 mg ONCE ONCE IV 12/02/18 11:00 12/02/18 11:01 DC 12/02/18 11:05 5 MG Vital Signs/I&O 12/02/18 10:15 Temp 100.1 Pulse 74 Resp 18 B/P (MAP) 104/62 (76) Pulse Ox 99 Departure Impression Primary Impression: Asymptomatic bacteriuria during Additional Impression: Nausea vomiting and diarrhea Disposition: HOME, SELF-CARE Condition: Stable Departure-Patient Inst. Decision time for Depature: 11:35 Referrals: [facility] (PCP/Family) Primary Care Physician Patient Instructions: Nausea and Vomiting of Add. Discharge Instructions: 1. Nausea medication as needed 2. Follow-up with your doctor next week 3. All discharge instructions reviewed with patient and/or family. Voiced understanding. Scripts Prochlorperazine Maleate (Compazine) 5 Mg Tablet 5 MG PO BID PRN for NAUSEA/VOMITING, #10 TAB Prov: JAYSHREE NICHOLSON SEMICONDUCTOR TESTING GROUP LEADER 12/02/18 Cephalexin (Keflex) 500 Mg Capsule 500 MG PO TID, #15 CAP Prov: JAYSHREE NICHOLSON SEMICONDUCTOR TESTING GROUP LEADER 12/02/18 JAYSHREE NICHOLSON SEMICONDUCTOR TESTING GROUP LEADER Dec 02, 2018 10:56
[2018-12-02] MEDS ORDERED: diphenhydrAMINE 50 MG/ML INJ (BENADRYL) IVP ONE (11:00)
[2018-12-02] MEDS ORDERED: PROCHLORPERAZINE 10 MG/2ML INJ (COMPAZINE) IV ONE (11:00)
[2018-12-02 11:06] LABS: CLARITY,URINE CLEAR; COLOR,URINE AMBER; GLUCOSE, URINE (UA) NEGATIVE (NEGATIVE); KETONES,URINE 4+ (NEGATIVE); LEUKOCYTE ESTERASE ,URINE 2+ (NEGATIVE); NITRITE,URINE NEGATIVE (NEGATIVE); PH,URINE 7 (5-9); PROTEIN,URINE 1+ (NEGATIVE); UROBILINOGEN,URINE 4 MG/DL (NORMAL)
[2018-12-02 11:21] LABS: BACTERIA,URINE MODERATE /HPF; BILIRUBIN,URINE 1+ (NEGATIVE); SQUAMOUS EPITHELIAL CELL,UR 25-50 /HPF
[2018-12-02] MEDS ORDERED: CEPH-507 PO (11:37)
[2018-12-02] MEDS ORDERED: PROC5TAB52 PO (11:37)
--- NOTE | 2018-12-02 11:46 | Diagnostic Imaging Report ---
INDICATION: Nausea and vomiting. TECHNIQUE: Multiple realtime grayscale images were obtained of the gravid uterus in various projections. FINDINGS: There is a single living intrauterine in a variable presentation. Gestational age by first ultrasound 16 weeks 3 days. Heart rate is 158 beats per minute and regular. Placenta is 3.1 cm from the cervix. Cervical length is 4.6 cm. Neither ovary was visualized. There are no adnexal masses. IMPRESSION: Limited obstetrical sonogram demonstrates no evidence of previa. Normal heart rate of 158 beats per minute. Dictated by: Dictated on workstation # [id number]
[2018-12-02 11:52] VITALS: BP 108/62
== END 2018-12-02 11:52 | disposition home or self-care (01) ==
LOC: EDUNIT# 10:05 → ER 10:06
DX: O23.92 Unspecified genitourinary tract infection in pregnancy, second trimester (principal); R82.71 Bacteriuria; O99.612 Diseases of the digestive system complicating pregnancy, second trimester; K21.9 Gastro-esophageal reflux disease without esophagitis; O99.89 Other specified diseases and conditions complicating pregnancy, childbirth and the puerperium; M41.9 Scoliosis, unspecified; O99.012 Anemia complicating pregnancy, second trimester; D64.9 Anemia, unspecified; O99.342 Other mental disorders complicating pregnancy, second trimester; F41.9 Anxiety disorder, unspecified; F32.9 Major depressive disorder, single episode, unspecified; Z82.49 Family history of ischemic heart disease and other diseases of the circulatory system; Z87.19 Personal history of other diseases of the digestive system; Z88.0 Allergy status to penicillin; Z88.4 Allergy status to anesthetic agent; Z3A.16 16 weeks gestation of pregnancy; Z88.8 Allergy status to other drugs, medicaments and biological substances; Z87.891 Personal history of nicotine dependence; Z90.89 Acquired absence of other organs; Z98.890 Other specified postprocedural states
CPT/HCPCS: 76815; 81000; 87088; 96374; 96375

== ENCOUNTER → 2019-02-13 | Outpatient (CLI) | payer MEDICAID ==
[~2019-02-13] MED LIST changes: +CEPH-507 PO; +PROC5TAB52 PO
[2019-02-13 16:18] LABS: BASOPHILS % (AUTO) 0 % (0-10); EOSINOPHILS # (AUTO) 0.1 10^3/uL (0.0-0.3); EOSINOPHILS % (AUTO) 1 % (0-10); HEMATOCRIT 34 % (35-52); HEMOGLOBIN 11.3 G/DL (11.5-16.0); LYMPHOCYTES # (AUTO) 2.8 X 10^3 (1.0-4.0); LYMPHOCYTES % (AUTO) 32 % (12-44); MEAN CORPUSCULAR HEMOGLOBIN 28 PG (25-34); MEAN CORPUSCULAR HGB CONC 33 G/DL (32-36); MEAN CORPUSCULAR VOLUME 84 FL (80-99); MEAN PLATELET VOLUME 9.7 FL (7.4-10.4); MONOCYTES # (AUTO) 0.6 X 10^3 (0.0-1.0); MONOCYTES % (AUTO) 7 % (0-12); NEUTROPHILS # (AUTO) 5.2 X 10^3 (1.8-7.8); NEUTROPHILS % (AUTO) 60 % (42-75); PLATELET COUNT 306 10^3/uL (130-400); RED CELL DISTRIBUTION WIDTH 14.4 % (10.0-14.5); WHITE BLOOD COUNT 8.7 10^3/uL (4.3-11.0)
[2019-02-13 16:38] LABS: ALANINE AMINOTRANSFERASE 19 U/L (0-55); ALBUMIN 3.7 GM/DL (3.2-4.5); ALKALINE PHOSPHATASE 74 U/L (40-136); BILIRUBIN,TOTAL 0.6 MG/DL (0.1-1.0); BUN/CREATININE RATIO 9; CALCIUM 9.2 MG/DL (8.5-10.1); CARBON DIOXIDE 24 MMOL/L (21-32); CHLORIDE 107 MMOL/L (98-107); CREATININE SERUM 0.55 MG/DL (0.60-1.30); GFR ESTIMATED > 60; GLUCOSE 81 MG/DL (70-105); POTASSIUM 3.6 MMOL/L (3.6-5.0); SODIUM 136 MMOL/L (135-145); TOTAL PROTEIN 7.1 GM/DL (6.4-8.2)
--- NOTE | 2019-02-13 16:48 | Diagnostic Imaging Report ---
INDICATION: Limited examination for amniotic fluid amount. FINDINGS: Limited exam shows a single live intrauterine . The placenta is posterior with no previa. The TERENCE is within normal limits at 17.4 cm. Cardiac activity is seen with the rate of 152 beats per minute. IMPRESSION: This is a single live intrauterine . The TERENCE is 17.4 cm. Dictated by: Dictated on workstation # [id number]
== END ==
LOC: RAD 16:01
PROVIDERS: ATTEND Nurse Practitioner Family
DX: O12.12 Gestational proteinuria, second trimester (principal); O36.8120 Decreased fetal movements, second trimester, not applicable or unspecified; Z3A.26 26 weeks gestation of pregnancy
CPT/HCPCS: 36415; 76815; 80053; 82570; 83615; 84156; 85025

== ENCOUNTER 2019-04-08 15:47 | Outpatient (CLI) | payer MEDICAID ==
[~2019-04-08] VITALS: Ht 165.1 cm; Wt 98.9 kg
--- NOTE | 2019-04-08 15:37 | NUR ---
PEGGY RAMSAY presented to unit via ambulation from home, accompanied by S.O. and child, with c/o SOA,LIGHT-HEADED. PEGGY RAMSAY weighed, gowned, voided, and to bed. EFHM and TOCO applied, VS taken. PEGGY RAMSAY oriented to bed controls, call light, TV, heat, and A/C controls.
[2019-04-08 15:55] VITALS: BP 114/59
--- NOTE | 2019-04-08 16:12 | NUR ---
Dr Ford called and notified of pt arrival, c/o SOA, lightheadedness off and on, approx 4x an hour since 0500. Each episode lasting 1-5min long. Pt describes feeling as though someone is choking her, but denies racing heart, chest pain, cough, other resp s/s. Dr. Ford notified of VS, FHR, ctx pattern. Order to monitor SpO2 and pulse for next 1-2hrs, CBC, CMP.
[2019-04-08 16:39] LABS: BASOPHILS % (AUTO) 0 % (0-10); EOSINOPHILS # (AUTO) 0.1 10^3/uL (0.0-0.3); EOSINOPHILS % (AUTO) 1 % (0-10); HEMATOCRIT 30 % (35-52); HEMOGLOBIN 9.5 G/DL (11.5-16.0); LYMPHOCYTES # (AUTO) 1.8 X 10^3 (1.0-4.0); LYMPHOCYTES % (AUTO) 22 % (12-44); MEAN CORPUSCULAR HEMOGLOBIN 25 PG (25-34); MEAN CORPUSCULAR HGB CONC 32 G/DL (32-36); MEAN CORPUSCULAR VOLUME 79 FL (80-99); MEAN PLATELET VOLUME 10.1 FL (7.4-10.4); MONOCYTES # (AUTO) 0.5 X 10^3 (0.0-1.0); MONOCYTES % (AUTO) 7 % (0-12); NEUTROPHILS % (AUTO) 71 % (42-75); PLATELET COUNT 307 10^3/uL (130-400); RED CELL DISTRIBUTION WIDTH 15.3 % (10.0-14.5); WHITE BLOOD COUNT 8.4 10^3/uL (4.3-11.0)
[2019-04-08 17:01] LABS: ALANINE AMINOTRANSFERASE 9 U/L (0-55); ALBUMIN 3.4 GM/DL (3.2-4.5); ALKALINE PHOSPHATASE 82 U/L (40-136); BILIRUBIN,TOTAL 0.5 MG/DL (0.1-1.0); BUN/CREATININE RATIO 7; CALCIUM 9.2 MG/DL (8.5-10.1); CARBON DIOXIDE 22 MMOL/L (21-32); CHLORIDE 104 MMOL/L (98-107); CREATININE SERUM 0.61 MG/DL (0.60-1.30); GFR ESTIMATED > 60; GLUCOSE 75 MG/DL (70-105); POTASSIUM 3.5 MMOL/L (3.6-5.0); SODIUM 137 MMOL/L (135-145); TOTAL PROTEIN 6.7 GM/DL (6.4-8.2)
[2019-04-08 17:05] VITALS: BP 106/63
--- NOTE | 2019-04-08 17:12 | NUR ---
Dr. Ford called, notified of latest VS, RN noticing correlation between SOA episodes and ctx. Breath sounds CTA bilat before/during/after episodes. SpO2 remains 99-100%. With first witness episode, pt HR did increase to 110bmp from baseline of 80s-90s, but otherwise unchanged. CBC/CMP results reported. Order rec'd for 1L NS bolus. Hold cervical exam for now, unless ctx start becoming more frequent than 4/hr.
[2019-04-08] MEDS ORDERED: NS IV 1000 ML 1,000 ML IV SCH (17:15)
[2019-04-08 17:35] VITALS: BP 108/67
[2019-04-08 18:05] VITALS: BP 108/61
--- NOTE | 2019-04-08 18:18 | NUR ---
Regular diet order rec'd from Addendum: 04/08/19 at 1925 by MO SANDOVAL RN Pt may D/C after IV fluids if ctx less than 3/hr.
[2019-04-08 18:35] VITALS: BP 114/59
--- NOTE | 2019-04-08 19:53 | NUR ---
D/C instructions given & explained, pt. verbalized understanding & signed, copy of D/C instructions to pt. IV D/C'd. Pt. left WS ambulatory escorted by SO & child, to home via private vehicle.
== END 2019-04-08 19:53 | disposition home or self-care (01) ==
LOC: WSo 15:47 → LDRP 15:48 → WSo 19:53
PROVIDERS: ATTEND Family Medicine
DX: O99.89 Other specified diseases and conditions complicating pregnancy, childbirth and the puerperium (principal); R06.02 Shortness of breath; Z3A.34 34 weeks gestation of pregnancy
CPT/HCPCS: 36415; 80053; 85025

== ENCOUNTER 2019-04-27 12:06 | Outpatient (CLI) | payer MEDICAID ==
[~2019-04-27] VITALS: Ht 165.1 cm; Wt 98.9 kg
[2019-04-27] VITALS (11 sets, daily range): BP systolic 103–117; BP diastolic 62–76
--- NOTE | 2019-04-27 12:10 | NUR ---
PEGGY RAMSAY presented to unit via from ED, accompanied by , with c/o CONTRACTIONS. PEGGY RAMSAY weighed, gowned, voided, and to bed. EFHM and TOCO applied, VS taken. PEGGY RAMSAY oriented to bed controls, call light, TV, heat, and A/C controls.
[2019-04-27 13:02] LABS: BILIRUBIN,URINE NEGATIVE (NEGATIVE); CLARITY,URINE CLEAR; COLOR,URINE YELLOW; GLUCOSE, URINE (UA) NEGATIVE (NEGATIVE); KETONES,URINE NEGATIVE (NEGATIVE); LEUKOCYTE ESTERASE ,URINE 1+ (NEGATIVE); NITRITE,URINE NEGATIVE (NEGATIVE); PH,URINE 8 (5-9); PROTEIN,URINE NEGATIVE (NEGATIVE); UROBILINOGEN,URINE NORMAL (NORMAL)
[2019-04-27 13:20] LABS: BACTERIA,URINE MODERATE /HPF; SQUAMOUS EPITHELIAL CELL,UR 25-50 /HPF
--- NOTE | 2019-04-27 13:25 | NUR ---
DR WEATHERS CALLED MESSAGE LEFT.
--- NOTE | 2019-04-27 13:34 | NUR ---
DR WEATHERS CALLED BACK BUT UNABLE TO HEAR VERY WELL IN CALL, WILL RETRY TO CALL DR TERRELL.
--- NOTE | 2019-04-27 13:35 | NUR ---
DR WEATHERS CALLED LEFT MESSAGE ON PHONE.
--- NOTE | 2019-04-27 13:50 | NUR ---
DR WEATHERS CALLED, UNABLE TO REACH.
--- NOTE | 2019-04-27 14:15 | NUR ---
DR CASAS CALLED, NOTIFIED BY DR CASAS THAT DR WEATHERS HAD A FAMILY EMERGENCY, NEW ORDERS RECEIVED AFTER UPDATE GIVEN.
[2019-04-27] MEDS ORDERED: LACTATED RINGERS 1,000 ML IV ONE (14:30)
--- NOTE | 2019-04-27 14:30 | NUR ---
IV STARTED X 1 STICK TO PTS RT FOREARM, PT TOLERATED WELL, LR INFUSING WIDE OPEN.
[2019-04-27] MEDS ORDERED: fentaNYL INJECTION 100 MCG/2 ML AMP IVP PRN (17:00)
--- NOTE | 2019-04-28 08:49 | Physician Query-Final Dx ---
GRACIELA SALAZAR 04/28/19 0849: Clinic Account Progress/Dx Physician Query: Please give diagnosis Please remember to include the # of weeks gestation in the final dx. Date of Service Apr 27, 2019 at 12:06 JARETH CASAS MD 04/28/19 1505: Clinic Account Progress/Dx DIAGNOSIS: Diagnosis 37 weeks gestation Abdominal pain complicating GRACIELA SALAZAR Apr 28, 2019 08:49 JARETH CASAS MD Apr 28, 2019 15:05
== END 2019-04-27 18:20 | disposition home or self-care (01) ==
LOC: WSo 12:06 → LDRP 12:07 → WSo 18:20
PROVIDERS: ATTEND Family Medicine
DX: O26.893 Other specified pregnancy related conditions, third trimester (principal); Z3A.37 37 weeks gestation of pregnancy
CPT/HCPCS: 81000; 87088; 96361; 96374; 99213

== ENCOUNTER 2019-05-01 17:16 | Outpatient (CLI) | payer MEDICAID ==
--- NOTE | 2019-05-01 17:10 | NUR ---
PEGGY RAMSAY presented to unit via ambulation, accompanied by s/o , for direct admit by . Pt. gowned, voided, and to bed. EFHM and TOCO applied, VS taken. Pt. oriented to bed controls, call light, TV, heat, and A/C controls.
[2019-05-01 17:20] VITALS: BP 108/64
--- NOTE | 2019-05-01 17:35 | NUR ---
was called r/t pt's admit. reviewed monitor tracing. new orders received.
[2019-05-01 18:53] VITALS: BP 112/71
[2019-05-01 22:53] VITALS: BP 112/59
[2019-05-02 04:50] VITALS: BP 105/63
[2019-05-02 08:15] VITALS: BP 109/65
--- NOTE | 2019-05-02 08:15 | NUR ---
initial shift assessment completed, see interventions for further. pt reports feeling ctx's. monitor tracing reviewed.
--- NOTE | 2019-05-02 10:07 | NUR ---
here @ bedside. monitor tracing reviewed. SVE no change from previous exam in office, 3cm.
--- NOTE | 2019-05-02 10:24 | NUR ---
monitors dc'd. pt up to shower.
--- NOTE | 2019-05-02 10:29 | History & Physical-OB ---
OB - Chief Complaint & HPI Date/Time Date of Admission: Date of Admission: Date seen by a Provider: May 02, 2019 Time Seen by a Provider: 10:25 Chief Complaint/History OB-Reason for Admission/Chief: Obstetrical Complication (decreased movement with deceleration in clinic) Hx : 3 Hx Para: 2 Gestational Age in Weeks: 37 Gestational Age in Days: 5 Admission Nurse Assessment Rev: Yes Allergies and Home Medications Allergies Coded Allergies: Penicillins (Verified Allergy, Intermediate, HIVES, 04/25/14) meropenem (Verified Allergy, Intermediate, HIVES, 08/04/16) FLUSHING ketorolac (Verified Allergy, Unknown, 11/22/18) Home Medications No Active Prescriptions or Reported Meds Patient Home Medication List Home Medication List Reviewed: Yes OB - History Hx of Present Care: Yes Ultrasounds: Normal mid trimester US Obstetrical Complications: None Medical Complications: None Obstetrical History Hx : 3 Hx Para: 2 Delivery History Hx Dystocia: No Hx Large For Gestational Age I: No Hx Small for Gestational Age I: No Hx Section: No Hx Vaginal Delivery Post C-Sec: No Hx Blood Disorders: Yes (ANEMIA) Adverse Rxn to Tranfusion: No Patient Past Medical History PMHx: Anxiety PSurgHx: Cholecystectomy Social History/Family History HIV/AIDS: No Recent Infectious Disease Expo: No Sexually Transmitted Disease: No 2nd Hand Smoke Exposure: Yes Immunizations Hepatitis A: Yes Hepatitis B: Yes Tetanus Booster (TDap): Less than 5yrs Date of Influenza Vaccine: Jun 04, 2016 OB - Admission Exam Physical Exam Vitals: Vital Signs 05/02/19 04:50 Temp 97.4 Pulse 95 Resp 18 B/P (MAP) 105/63 (77) O2 Delivery Room Air HEENT: NCAT Heart: Rhythm Normal Lungs: Clear Abdomen: Gravid Extremities: Normal Reflexes: Normal Cervical Dilatation: 3cm Effacement: 50% Station: Ballotable Membranes: Intact Amniotic Fluid: Clear Heart Rate: 140's Accelerations: Accelerations Present Decelerations: No Decelerations Short Term Variability: Present Bad Cloth Checker Variability: Average (6-25) Contractions on Admission: >10 Minutes Apart OB - Assessment/Plan/Diagnosis Assessment Assessment: observation Admission Dx Decreased movement. Admission Status: Observation Reason for Inpatient Admission: Decreased movement with 8/10 on BPP and NST with 2 off for breathing. Discharge Diagnosis Diagnosis: Overnight patient's strip looked good. No cervical change. Good movement. CAROL THOMPSON MD May 02, 2019 10:29
--- NOTE | 2019-05-02 11:24 | NUR ---
Dismissal instructions given, verbalizes understanding. signature page signed, placed on chart
--- NOTE | 2019-05-02 11:25 | NUR ---
pt ambulated to private vehicle with this RN and @ side. pt stable with no sx's of distress noted.
== END 2019-05-02 11:25 | disposition home or self-care (01) ==
LOC: WS 17:16 → WSo 17:16 → LDRP 17:17 → WSo 05-02 11:25
PROVIDERS: ATTEND Family Medicine
DX: O36.8130 Decreased fetal movements, third trimester, not applicable or unspecified (principal); O76 Abnormality in fetal heart rate and rhythm complicating labor and delivery; Z3A.37 37 weeks gestation of pregnancy

== ENCOUNTER 2019-05-11 06:50 | Inpatient (IN) | payer MEDICAID ==
[2019-05-11] VITALS (22 sets, daily range): BP systolic 96–188; BP diastolic 56–84
[~2019-05-11] VITALS: Ht 165.1 cm; Wt 100.2 kg
--- NOTE | 2019-05-11 06:45 | NUR ---
PEGGY RAMSAY presented to unit via ambulatory from home, accompanied by SO , for INDUCTION. PEGGY RAMSAY weighed, gowned, voided, and to bed. EFHM and TOCO applied, VS taken. PEGGY RAMSAY oriented to bed controls, call light, TV, heat, and A/C controls.
--- NOTE | 2019-05-11 06:55 | NUR ---
Iv started per this RN
[2019-05-11] MEDS ORDERED: OXYTOCIN/NORMAL SALINE 500 ML IV SCH ×2 (07:32→13:32)
[2019-05-11] MEDS ORDERED: D5 LR IV SOLUTION 1,000 ML IV SCH (07:32)
[2019-05-11] MEDS ORDERED: D5 LR IV SOLUTION 1,000 ML IV ONE (07:34)
[2019-05-11 07:56] LABS: BASOPHILS % (AUTO) 0 % (0-10); EOSINOPHILS # (AUTO) 0.1 10^3/uL (0.0-0.3); EOSINOPHILS % (AUTO) 1 % (0-10); HEMATOCRIT 33 % (35-52); HEMOGLOBIN 10.3 G/DL (11.5-16.0); LYMPHOCYTES % (AUTO) 24 % (12-44); MEAN CORPUSCULAR HEMOGLOBIN 24 PG (25-34); MEAN CORPUSCULAR HGB CONC 32 G/DL (32-36); MEAN CORPUSCULAR VOLUME 77 FL (80-99); MONOCYTES # (AUTO) 0.5 X 10^3 (0.0-1.0); MONOCYTES % (AUTO) 6 % (0-12); NEUTROPHILS # (AUTO) 5.8 X 10^3 (1.8-7.8); NEUTROPHILS % (AUTO) 69 % (42-75); PLATELET COUNT 328 10^3/uL (130-400); WHITE BLOOD COUNT 8.4 10^3/uL (4.3-11.0)
--- NOTE | 2019-05-11 08:06 | History & Physical-OB ---
OB - Chief Complaint & HPI Date/Time Date of Admission: Date of Admission: May 11, 2019 at 06:50 Date seen by a Provider: May 11, 2019 Time Seen by a Provider: 08:01 Chief Complaint/History OB-Reason for Admission/Chief: Induction of Labor Hx : 3 Hx Para: 2 Expected Date of Delivery: May 17, 2019 Gestational Age in Weeks: 39 Gestational Age in Days: 1 Indication for induction: maternal discomfort, other (intermittent complaints of decreased movement, possible LGA) History of Labs O neg, antibody neg, RI, HIV/HepB/RPR NR, GC/chlamydia neg. 3 hour glucola neg. GBS neg. Allergies and Home Medications Allergies Coded Allergies: Penicillins (Verified Allergy, Intermediate, HIVES, 05/11/19) meropenem (Verified Allergy, Intermediate, HIVES, 05/11/19) FLUSHING ketorolac (Verified Allergy, Unknown, 05/11/19) Home Medications Vit No.124/Iron/FA 1 Each Tablet, 1 EACH PO DAILY, (Reported) Patient Home Medication List Home Medication List Reviewed: Yes OB - History Hx of Present Care: Yes Ultrasounds: Normal mid trimester US Obstetrical Complications: None Information Induced Hypertension: No Maternal Gestational Diabetes: No Hemorrhage: No Obstetrical History Hx : 3 Hx Para: 2 Hx # Term Pregnancies: 2 Hx # Pregnancies: 0 Number of Living Children: 2 Hx Termination: No Hx Multiple Gestation: No Hx Ectopic : No Hx Stillbirth: No Hx Complication: No Hx Induced Hypertens: No Hx Maternal Gestational Diabet: No Hx Hemorrhage: No Delivery History Hx Dystocia: No Hx Forceps Assisted Delivery: No Hx Vacuum Extraction Assisted: No Hx Placenta Abnormality: No Hx Distress: No Hx Large For Gestational Age I: No Hx Small for Gestational Age I: No Hx Section: No Hx Vaginal Delivery Post C-Sec: No Hx Blood Disorders: No Adverse Rxn to Tranfusion: No Patient Past Medical History PMHx: Anxiety IBS PSurgHx: Cholecystectomy Tonsillectomy Social History/Family History HIV/AIDS: No Recent Infectious Disease Expo: No Sexually Transmitted Disease: No Alcohol Use: Denies Use Recreational Drug Use: No Smoking Cessation: Former smoker 2nd Hand Smoke Exposure: Yes Immunizations Hepatitis A: Yes Hepatitis B: Yes Tetanus Booster (TDap): Less than 5yrs Date of Influenza Vaccine: Jun 04, 2016 Rubella: immune RPR/VDRL: Negative GBS Status: Negative HBsAG: Negative OB - Admission Exam Physical Exam HEENT: NCAT Abdomen: Gravid Extremities: Edema Heart Rate: 150's Accelerations: Accelerations Present Decelerations: No Decelerations Short Term Variability: Present Care Home Variability: Average (6-25) Contractions on Admission: < 5 Minutes Apart Intensity: Mild Viera Scoring Tool (Modified) Dilation (cm): 3-4cm (2) Effacement (%): 0-30% (0) Descent/Station: -2 (1) Cervix Consistency: Medium(1) Cervix Position: Anterior (2) Add 1 point for: Each previous vaginal delivery (1) (2) Viera Score: 8 Labs Laboratory Tests Test 05/11/19 06:55 Range/Units White Blood Count 8.4 4.3-11.0 10^3/uL Red Blood Count 4.26 L 4.35-5.85 10^6/uL Hemoglobin 10.3 L 11.5-16.0 G/DL Hematocrit 33 L 35-52 % Mean Corpuscular Volume 77 L 80-99 FL Mean Corpuscular Hemoglobin 24 L 25-34 PG Mean Corpuscular Hemoglobin Concent 32 32-36 G/DL Red Cell Distribution Width 17.0 H 10.0-14.5 % Platelet Count 328 130-400 10^3/uL Mean Platelet Volume 11.0 H 7.4-10.4 FL Neutrophils (%) (Auto) 69 42-75 % Lymphocytes (%) (Auto) 24 12-44 % Monocytes (%) (Auto) 6 0-12 % Eosinophils (%) (Auto) 1 0-10 % Basophils (%) (Auto) 0 0-10 % Neutrophils # (Auto) 5.8 1.8-7.8 X 10^3 Lymphocytes # (Auto) 2.0 1.0-4.0 X 10^3 Monocytes # (Auto) 0.5 0.0-1.0 X 10^3 Eosinophils # (Auto) 0.1 0.0-0.3 10^3/uL Basophils # (Auto) 0.0 0.0-0.1 10^3/uL OB - Assessment/Plan/Diagnosis Assessment Assessment: induction of labor Admission Dx Induction of labor 39 weeks gestation Admission Status: Inpatient Order (span 2 midnights) Reason for Inpatient Admission: Induction/labor, delivery and course Plan Plan: Induction Induction Method: per Pitocin Protocol Other Plan AROM done at 0816 with clear fluid JARETH CASAS MD May 11, 2019 08:06
[2019-05-11] MEDS ORDERED: PREN-142 PO (08:07)
[2019-05-11] MEDS: fentaNYL INJECTION 100 MCG/2 ML AMP IVP PRN ×3 (10:17→12:29)
[2019-05-11] MEDS ORDERED: LIDOCAINE/EPI 2% 1:200,00 (XYLOCAINE) 10 ML VIAL ONE (12:42)
[2019-05-11] MEDS ORDERED: MINERAL OIL CONCENTRATE 99.9% 15 ML UDC ONE (12:42)
--- NOTE | 2019-05-11 13:32 | OB Labor & Delivery Record ---
Vag Delivery Note Vag Delivery Note Date of Delivery: 05/11/19 Preoperative Diagnosis: Todd Collins is a (23 /Para 3 / 2, Gestational Age (wks)39with [] Postoperative Diagnosis: Same Surgeon: JARETH CSAAS Alarm Signal Operator: Laxmi Ayala, MS3 Anesthesia: None Delivery Type: Spontaneous vaginal delivery Findings: Viable female , apgars 8/9, weight 9#3 Lacerations: none Intact placenta with 3 vessel cord. Bandolero cord, hand delivered with shoulder, no body cord or shoulder dystocia Estimated Blood Loss: 350 ml Complications: None Condition: Stable Description of Procedure: The patient is a 23 year old female who presented for induction of labor. She was admitted and informed consent was obtained. Her labor course was unremarkable. She progressed to complete dilatation and began to push. She was then set up for delivery. The infant's head was delivered atraumatically in the MANUEL position. Bandolero cord noted, delivered through, the ian ulders and remainder of the infant's body were then delivered without difficulty. Upon delivery, the infant was vigorous and placed on maternal abdomen. After a delay, the cord was doubly clamped and cut and the infant was handed off to the pediatric staff. An intact placenta with 3-vessel cord delivered via Rosario and there was found to be minimal bleeding.~ Vigorous fundal massage was performed and the fundus was found to be firm. IV oxytocin was given. Examination of the vagina and perineum revealed no lacerations. Following the delivery, sponge, instrument and needle counts were correct. Mom and baby were both in stable condition in the labor suite. Vitals - Labs Vital Signs - I&O Vital Signs Date Time Temp Pulse Resp B/P (MAP) Pulse Ox O2 Delivery O2 Flow Rate FiO2 05/11/19 11:53 89 20 118/78 (91) Room Air 05/11/19 11:39 103 20 124/75 (91) Room Air 05/11/19 11:24 89 20 128/84 (99) Room Air 05/11/19 11:10 97.9 109 20 118/77 (91) Room Air 05/11/19 10:54 98 20 118/75 (89) Room Air 05/11/19 10:39 93 20 119/74 (89) Room Air 05/11/19 10:23 88 20 112/67 (82) Room Air 05/11/19 10:08 98.1 05/11/19 07:58 100 117/76 (90) Room Air Labs Laboratory Tests 05/11/19 06:55: White Blood Count 8.4, Red Blood Count 4.26L, Hemoglobin 10.3L, Hematocrit 33L, Mean Corpuscular Volume 77L, Mean Corpuscular Hemoglobin 24L, Mean Corpuscular Hemoglobin Concent 32, Red Cell Distribution Width 17.0H, Platelet Count 328, Mean Platelet Volume 11.0H, Neutrophils (%) (Auto) 69, Lymphocytes (%) (Auto) 24, Monocytes (%) (Auto) 6, Eosinophils (%) (Auto) 1, Basophils (%) (Auto) 0, Neutrophils # (Auto) 5.8, Lymphocytes # (Auto) 2.0, Monocytes # (Auto) 0.5, Eosinophils # (Auto) 0.1, Basophils # (Auto) 0.0 JARETH CASAS MD May 11, 2019 13:32
[2019-05-11] MEDS ORDERED: WITCH HAZEL(TUCKS) 40 EA JAR TOP PRN (13:45)
[2019-05-11] MEDS ORDERED: BENZOCAINE/MENTHOL (DERMOPLAST) 56 ML CAN TP PRN (13:45)
[2019-05-11] MEDS ORDERED: CATHETER FLUSH 10 ML SYR IV SCH ×2 (14:00)
--- NOTE | 2019-05-11 17:00 | NUR ---
REFER TO LABOR FLOW SHEET.
[2019-05-11] MEDS: IBUPROFEN 600 MG (MOTRIN) TAB PO SCH (18:41)
[2019-05-11] MEDS: DOCUSATE SODIUM 100 MG (COLACE) CAP PO SCH (22:00)
[2019-05-12 02:10] VITALS: BP 103/62
[2019-05-12 05:25] LABS: BASOPHILS % (AUTO) 0 % (0-10); EOSINOPHILS # (AUTO) 0.1 10^3/uL (0.0-0.3); EOSINOPHILS % (AUTO) 1 % (0-10); HEMATOCRIT 29 % (35-52); HEMOGLOBIN 9.1 G/DL (11.5-16.0); LYMPHOCYTES # (AUTO) 1.9 X 10^3 (1.0-4.0); LYMPHOCYTES % (AUTO) 19 % (12-44); MEAN CORPUSCULAR HEMOGLOBIN 24 PG (25-34); MEAN CORPUSCULAR HGB CONC 31 G/DL (32-36); MEAN CORPUSCULAR VOLUME 76 FL (80-99); MEAN PLATELET VOLUME 10.1 FL (7.4-10.4); MONOCYTES # (AUTO) 0.8 X 10^3 (0.0-1.0); MONOCYTES % (AUTO) 8 % (0-12); NEUTROPHILS # (AUTO) 7.1 X 10^3 (1.8-7.8); NEUTROPHILS % (AUTO) 72 % (42-75); PLATELET COUNT 307 10^3/uL (130-400); RED CELL DISTRIBUTION WIDTH 17.1 % (10.0-14.5); WHITE BLOOD COUNT 9.9 10^3/uL (4.3-11.0)
[2019-05-12] MEDS: IBUPROFEN 600 MG (MOTRIN) TAB PO SCH ×4 (06:17→12:11)
[2019-05-12 06:18] VITALS: BP 106/69
[2019-05-12] MEDS ORDERED: PRENATAL VITAMIN 1 EA TAB PO SCH (07:00)
[2019-05-12 09:45] VITALS: BP 118/67
[2019-05-12] MEDS: DOCUSATE SODIUM 100 MG (COLACE) CAP PO SCH (09:48)
[2019-05-12 12:08] VITALS: BP 114/67
[2019-05-12] MEDS ORDERED: IBUP-844 PO (14:42)
--- NOTE | 2019-05-12 14:43 | Discharge Instructions ---
Discharge Inst-Women's Serv Reconcile Patient Problems Problems Reviewed?: Yes Depart Medications New, Converted or Re-Newed RX: Transmitted to Pharmacy ([facility]) New Medications: Ibuprofen (Ibu) 600 Mg Tablet 600 MG PO Q6H PRN for CRAMPS, #90 TAB 0 Refills Continued Medications: Vit No.124/Iron/FA ( Vitamin Tablet) 1 Each Tablet 1 EACH PO DAILY, TAB Follow Up/Instructions Goal/Follow Up: Follow up with [facility] in 6wk Activity Activity: Activity as Tolerated Nothing Inside Vagina: No Douching, No [place], No Tampons Diet Discharge Diet: No Restrictions Symptoms to Report to DrAbbe: Bleeding Excessive, Pain Increased, Fever Over 101 Degrees F, Vaginal Bleeding Increase, Vaginal Discharge Foul, Questions/Concerns, Shortness of Breath For Any Problems or Questions: Contact Your Physician FLORA WEATHERS DO May 12, 2019 14:43
--- NOTE | 2019-05-12 14:47 | Discharge Summary ---
Diagnosis/Chief Complaint Date of Admission May 11, 2019 at 06:50 Date of Discharge May 12, 2019 Admission Diagnosis Admission Diagnosis at 39w1d IOL Rh neg Discharge Diagnosis at 39w1d IOL s/p on 05/11/19; LGA infant Rh neg Discharge Summary-OBS Procedures None. Discharge Physical Examination Allergies: Coded Allergies: Penicillins (Verified Allergy, Intermediate, HIVES, 05/11/19) meropenem (Verified Allergy, Intermediate, HIVES, 05/11/19) FLUSHING ketorolac (Verified Allergy, Unknown, 05/11/19) Vitals & I&Os Intake and Output 05/12/19 00:00 Intake Total 1500 ml Balance 1500 ml Vital Sign - Last 12Hours Date Time Temp Pulse Resp B/P (MAP) Pulse Ox O2 Delivery O2 Flow Rate FiO2 05/12/19 12:08 98.3 100 18 114/67 (83) 100 Room Air General Appearance: Alert, Oriented X3, Cooperative Psych/Mental Status: Mood NL Hospital Course Routine Labs Laboratory Tests 05/12/19 05:07: White Blood Count 9.9, Red Blood Count 3.85L, Hemoglobin 9.1L, Hematocrit 29L, Mean Corpuscular Volume 76L, Mean Corpuscular Hemoglobin 24L, Mean Corpuscular Hemoglobin Concent 31L, Red Cell Distribution Width 17.1H, Platelet Count 307, Mean Platelet Volume 10.1, Neutrophils (%) (Auto) 72, Lymphocytes (%) (Auto) 19, Monocytes (%) (Auto) 8, Eosinophils (%) (Auto) 1, Basophils (%) (Auto) 0, Neutrophils # (Auto) 7.1, Lymphocytes # (Auto) 1.9, Monocytes # (Auto) 0.8, Eosinophils # (Auto) 0.1, Basophils # (Auto) 0.0 Discharge Instructions to patient/family Please see electronic discharge instructions given to patient. Discharge Medications Reviewed and agree with Discharge Medication list on patient's Discharge Instruction sheet Clinical Quality Measures DVT/VTE Risk/Contraindication: Risk Factor Score Per Nursin RFS Level Per Nursing on Admit: 1=Low/No VTE PPX Copy Copies To 1: JARETH CASAS MD, LINDA K DO May 12, 2019 14:47
--- NOTE | 2019-05-12 16:00 | NUR ---
PEGGY RAMSAY demonstrates understanding of discharge instructions and accurately returns instructions upon questioning. Copy of Post-Discharge Instructions and Medication Discharge Instructions given to patient. PEGGY RAMSAY is able to manage continuing needs after discharge. Patients belongings returned to patient. Skin dry and intact; no breakdown noted. Patient discharged from [facility]- on 05/12/19 at 1600. PEGGY RAMSAY left floor via ambulation, accompanied by womens services staff.
== END 2019-05-12 16:00 | disposition home or self-care (01) | DRG 807 ==
LOC: LDRP 06:50
PROVIDERS: ADMIT Family Medicine; ATTEND Family Medicine
PROC: 10E0XZZ Delivery of Products of Conception, External Approach (ICD-10-PCS; principal; 2019-05-11)
PROC: 3E033VJ Introduction of Other Hormone into Peripheral Vein, Percutaneous Approach (ICD-10-PCS; 2019-05-11)
DX: O36.63X0 Maternal care for excessive fetal growth, third trimester, not applicable or unspecified (principal); Z37.0 Single live birth; Z3A.39 39 weeks gestation of pregnancy
CPT/HCPCS: 36415; 82962; 83033; 85025; 86850; 86900; 86901